=== PATIENT | male | born 1970 | race Caucasian/White ===

== ENCOUNTER 2018-10-26 02:34 | Observation (INO) | payer OTHER, MEDICARE ==
[~2018-10-26] VITALS: Ht 182.9 cm; Wt 102.9 kg
[~2018-10-26 02:34] MED LIST: ALBU90OI INH; AZIT500 PO; BUPR150ER PO; Bactrim Ds Tab1 EACH PO; CEPH500 PO; CIPR500 PO; CLOM50A PO; CYCL10 PO; DIAZ5 PO; DOXY100 PO; FLUO20 PO; GABA100; GABA300 PO; HYDACE10B PO; HYDACE5 PO; HYDCHL12.5 PO; HYDCHL25; IBUHYD PO; LEVO750 PO; LISHYD1012 PO; LISHYD2025 PO; METF500; METF500C; METF500C PO; METO50 PO; METPRE4DP PO; METR500 PO; Naproxen250 MG PO; Norco 5-325 Ta1 EACH PO; PRED20 PO; PROACE100 PO; Prinivil10 MG PO; QUET100; QUET25 PO; QUET300; RXHYDACE PO; Risperdal50 MG/2 ML IM; SACC250C PO; SULTRIDS PO; TRIHYD253B
[2018-10-26 03:15] LABS: BASOPHILS ABSOLUTE AUTO 0.07 K/mm3 (0.00-0.23); BASOPHILS PERCENT AUTO 1 % (0-2); EOSINOPHILS ABSOLUTE AUTO 0.31 K/mm3 (0.00-0.68); EOSINOPHILS PERCENT AUTO 3 % (0-6); Hematocrit 49.3 % (37.0-53.0); Hemoglobin 16.6 g/dL (13.5-17.5); IMMATURE GRAN ABSOLUTE AUTO 0.03 K/mm3 (0.00-0.10); IMMATURE GRAN PERCENT AUTO 0 % (0-1); LYMPHOCYTES ABSOLUTE AUTO 1.32 K/mm3 (0.84-5.20); LYMPHOCYTES PERCENT AUTO 13 % (21-46); MONOCYTES ABSOLUTE AUTO 0.71 K/mm3 (0.16-1.47); MONOCYTES PERCENT AUTO 7 % (4-13); Mean Corpuscular HGB 32.7 pg (26.0-34.0); Mean Corpuscular HGB Conc 33.7 g/dL (31.5-36.5); Mean Corpuscular Volume 97 fL (80-100); Mean Platelet Volume 10.2 fL (9.1-12.4); NEUTROPHILS ABSOLUTE AUTO 7.77 K/mm3 (1.96-9.15); NEUTROPHILS PERCENT AUTO 76 % (41-73); Platelet Count 145 K/mm3 (150-400); RDW Coefficient Variation 12.2 % (11.7-14.2); RDW Standard Deviation 43.7 fL (35.1-46.3); Red Blood Cell Count 5.07 M/mm3 (4.30-5.90); White Blood Cell Count 10.21 K/mm3 (4.00-11.30)
[2018-10-26 03:29] LABS: Alanine Aminotransfer (ALT/SGP 24 U/L (12-78); Albumin, Blood 3.3 g/dL (3.4-5.0); Albumin/Globulin Ratio 1.1 (0.8-1.8); Alk Phos 118 U/L (50-136); Anion Gap 8 mmol/L (6-16); Aspartate Aminotrans (AST/SGOT 19 U/L (12-37); Bilirubin, Total 0.3 mg/dL (0.1-1.0); Blood Urea Nitrogen 17 mg/dL (8-24); CO2, Blood 27 mmol/L (21-32); Calcium, Blood 8.2 mg/dL (8.5-10.1); Chloride, Blood 106 mmol/L (98-108); Glomerular Filtration Rate >60 (60-); Glucose, Blood 181 mg/dL (70-99); Potassium, Blood 3.5 mmol/L (3.5-5.5); Sodium, Blood 141 mmol/L (136-145); Total Protein, Blood 6.3 g/dL (6.4-8.2)
--- NOTE | 2018-10-26 09:56 | NUR ---
REPORT RECEIVED FROM ED RN AT THIS TIME.
--- NOTE | 2018-10-26 11:03 | NUR ---
The pt was admitted to ICU 15; PCU status. He is very somnulent. Admission nursing history was not completed due to the pt's inability to stay awake and answer questions, as well as some confusing answers given in response to questions (i.e. "I take MRSA for diabetes"). He appears unkempt, unclean, and has many small scabs with reddness around them on his arms, abdomen and pelvic area. Blood pressure noted elevated and apresoline was administered as ordered prn. Continuing to monitor the response to this. Normal sinus rhythm noted 89 bpm, sp02 97% on room air, tachypneic at 20-28 breaths /minute. positive JVD. He stated on admission that his pain was sternal, sharp, rated a 9/10. He has not been able to stay awake long enough to complete any conversations with me.
[2018-10-26 12:11] LABS: Magnesium, Blood 2.3 mg/dL (1.6-2.4); Troponin I 0.015 ng/mL (0.000-0.040)
--- NOTE | 2018-10-26 12:47 | NUR ---
The pt remains somnulent, awakening to verbal stimuli, but falls quickly back to sleep. No c/o pain or discomfort at this time. Blood pressure remains high; call to Dr. lovett regarding this and new orders received.
[2018-10-26 12:58] LABS: Bilirubin, Urine Neg (Neg); Blood, Urine 2+ (Neg); Glucose Qualitative, Urine Neg (Neg); Ketones, Urine Neg (Neg); Leukocyte Esterase, Urine Neg (Neg); Nitrite, Urine Neg (Neg); Protein, Urine Neg (Neg); Urobilinogen, Urine NORM (Normal)
--- NOTE | 2018-10-26 13:22 | NUR ---
ECHOCARDIOGRAM COMPLETED
[2018-10-26 13:55] LABS: Appearance, Urine Clear (Clear); Color, Urine Yellow (P-Yellow)
[2018-10-26 13:56] LABS: Bacteria Few /hpf; Red Blood Cells, Urine 0-2 /hpf (0-2); Squamous Epithelial Cells Not Seen /hpf (Few); White Blood Cells, Urine 0-2 /hpf (0-5)
--- NOTE | 2018-10-26 14:27 | NUR ---
Metoprolol oral med given for blood pressure as ordered by Dr. Rosales. The pt awakens to simuli, but falls quickly back to sleep. He stated that his pain is just a "little bit" now in his sternal area. NO dyspnea, cyanosis, diaphoresis, or hypoxia. Continous oxymetry in place, regular hourly blood pressure checks to monitor response to administered antihypertensives. Normal sinus rhythm per monitor, troponins have been negative so far.
[2018-10-26 14:43] LABS: U Amphetamine Screen DETECTED; U Barbituate Screen Not Detected; U Benzodiazapine Screen Not Detected; U Buprenorphine Screen Not Detected; U Cannabinoids Screen DETECTED; U Cocaine Screen Not Detected; U Methadone Screen Not Detected; U Methamphetamine Screen Not Detected; U Opiates Screen Not Detected; U Oxycodone Screen Not Detected; U Phencyclidine Screen Not Detected; U Propoxyphene Screen Not Detected
[2018-10-26] MEDS ORDERED: METF500C PO (17:29)
[2018-10-26] MEDS ORDERED: LISI5 PO (17:29)
[2018-10-26] MEDS ORDERED: ACET325 PO (17:30)
--- NOTE | 2018-10-26 17:31 | NUR ---
The patient is more awake now, answering questions and responding appropriately. Dr. Rosales was here to see the patient; states that the troponins have all been negative. The pt is no longer having any chest pain. He has been sleeping since his arrival here in the unit, except for being awakened briefly by staff for care and assessments. He states that he lives at [address] [place] [address] in [facility], but does not have anyone who could come and pick him up. States that he does not have any phone numbers for family or friends who can give him a ride home. States that he isn't going to get his prescriptions filled, either, because he hasn't been taking his medications at home and he doesn't have any money to pay for prescriptions. States that he uses the [place] [facility], and that I could send the prescriptions there since they cost is much less than a regular pharmacy. I called and talked to the AOD at the [facility], and the prescriptions and pt information were faxed over to them. AOD states that the pt is a "regular" at their facility. Talked with Jamaal Humphries, nursing supervisor tellers and approval was recieved for a taxi ride for the pt to go to the address he gave me which he states is where he is staying with friends.
== END 2018-10-26 18:20 | disposition home or self-care (01) ==
LOC: ER 02:34 → ICUW 02:35 → PCU 02:36 → ICUW 10:05
PROVIDERS: Emergency Medicine; ADMIT Internal Medicine
DX: I24.9 Acute ischemic heart disease, unspecified (principal); I47.2 Ventricular tachycardia; I16.0 Hypertensive urgency; G93.40 Encephalopathy, unspecified; E87.6 Hypokalemia; F15.10 Other stimulant abuse, uncomplicated; E11.9 Type 2 diabetes mellitus without complications; I10 Essential (primary) hypertension; F32.9 Major depressive disorder, single episode, unspecified; F17.200 Nicotine dependence, unspecified, uncomplicated; Z88.8 Allergy status to other drugs, medicaments and biological substances; Z88.5 Allergy status to narcotic agent
CPT/HCPCS: 36415; 71045; 80053; 81001; 83036; 83690; 83735; 84484; 85025; 93005; 93010; 93306; 96365-59; 96366; 96372-59; 96375-59; 99285-25; C9113; G0378; J0360; J1650; J2060; J2405; J3010; J3480

== ENCOUNTER 2019-06-05 08:52 | Emergency (ER) | payer OTHER, MEDICARE ==
[~2019-06-05] VITALS: Ht 182.9 cm; Wt 104.3 kg
[~2019-06-05 08:52] MED LIST changes: +ACET325 PO; +LISI5 PO
[2019-06-05 09:54] LABS: BASOPHILS ABSOLUTE AUTO 0.03 K/mm3 (0.00-0.23); BASOPHILS PERCENT AUTO 0 % (0-2); EOSINOPHILS ABSOLUTE AUTO 0.04 K/mm3 (0.00-0.68); EOSINOPHILS PERCENT AUTO 0 % (0-6); Hematocrit 51.9 % (37.0-53.0); Hemoglobin 18.3 g/dL (13.5-17.5); IMMATURE GRAN ABSOLUTE AUTO 0.04 K/mm3 (0.00-0.10); IMMATURE GRAN PERCENT AUTO 0 % (0-1); LYMPHOCYTES ABSOLUTE AUTO 1.12 K/mm3 (0.84-5.20); LYMPHOCYTES PERCENT AUTO 9 % (21-46); MONOCYTES ABSOLUTE AUTO 1.13 K/mm3 (0.16-1.47); MONOCYTES PERCENT AUTO 9 % (4-13); Mean Corpuscular HGB 32.1 pg (26.0-34.0); Mean Corpuscular HGB Conc 35.3 g/dL (31.5-36.5); Mean Corpuscular Volume 91 fL (80-100); Mean Platelet Volume 10.3 fL (9.1-12.4); NEUTROPHILS ABSOLUTE AUTO 9.97 K/mm3 (1.96-9.15); NEUTROPHILS PERCENT AUTO 81 % (41-73); Platelet Count 160 K/mm3 (150-400); RDW Coefficient Variation 11.7 % (11.7-14.2); RDW Standard Deviation 39.3 fL (35.1-46.3); White Blood Cell Count 12.33 K/mm3 (4.00-11.30)
[2019-06-05 10:19] LABS: Ethanol (Alcohol), Blood, Med <3 mg/dL; Salicylate 2.5 mg/dL (2.8-20.0)
[2019-06-05 10:29] LABS: Alanine Aminotransfer (ALT/SGP 59 U/L (12-78); Albumin, Blood 4.2 g/dL (3.4-5.0); Albumin/Globulin Ratio 1.3 (0.8-1.8); Alk Phos 160 U/L (50-136); Anion Gap 7 mmol/L (6-16); Aspartate Aminotrans (AST/SGOT 24 U/L (12-37); Bilirubin, Total 0.4 mg/dL (0.1-1.0); Blood Urea Nitrogen 15 mg/dL (8-24); Bun/Creatinine Ratio 14.6 (12.0-20.0); CO2, Blood 28 mmol/L (21-32); Calcium, Blood 9.1 mg/dL (8.5-10.1); Chloride, Blood 103 mmol/L (98-108); Creatinine, Blood 1.03 mg/dL (0.60-1.20); Globulin, Blood 3.3 g/dL (2.2-4.0); Glomerular Filtration Rate >60 (60-); Glucose, Blood 134 mg/dL (70-99); Potassium, Blood 3.2 mmol/L (3.5-5.5); Sodium, Blood 138 mmol/L (136-145); Total Protein, Blood 7.5 g/dL (6.4-8.2)
[2019-06-05 10:35] LABS: Acetaminophen, Random <2.0 ug/mL (10.0-30.0)
== END 2019-06-05 12:38 | disposition left against medical advice (07) ==
LOC: ER 08:52
PROVIDERS: Physician Assistant
DX: F23 Brief psychotic disorder (principal); E11.9 Type 2 diabetes mellitus without complications; I10 Essential (primary) hypertension; D72.829 Elevated white blood cell count, unspecified; E87.6 Hypokalemia; F17.200 Nicotine dependence, unspecified, uncomplicated; Z88.8 Allergy status to other drugs, medicaments and biological substances; Z88.5 Allergy status to narcotic agent; Z79.899 Other long term (current) drug therapy; Z79.84 Long term (current) use of oral hypoglycemic drugs
CPT/HCPCS: 36415; 70450; 80053; 84443; 85025; 99285-25; G0480

== ENCOUNTER 2019-10-09 18:29 | Emergency (ER) | payer OTHER, MEDICARE ==
[~2019-10-09] VITALS: Ht 182.9 cm; Wt 72.6 kg
[2019-10-09 19:09] LABS: BASOPHILS ABSOLUTE AUTO 0.05 K/mm3 (0.00-0.23); BASOPHILS PERCENT AUTO 1 % (0-2); EOSINOPHILS PERCENT AUTO 3 % (0-6); Hematocrit 48.6 % (37.0-53.0); Hemoglobin 16.6 g/dL (13.5-17.5); IMMATURE GRAN ABSOLUTE AUTO 0.02 K/mm3 (0.00-0.10); IMMATURE GRAN PERCENT AUTO 0 % (0-1); LYMPHOCYTES ABSOLUTE AUTO 1.66 K/mm3 (0.84-5.20); LYMPHOCYTES PERCENT AUTO 17 % (21-46); MONOCYTES PERCENT AUTO 10 % (4-13); Mean Corpuscular HGB 32.6 pg (26.0-34.0); Mean Corpuscular HGB Conc 34.2 g/dL (31.5-36.5); Mean Corpuscular Volume 96 fL (80-100); Mean Platelet Volume 10.6 fL (9.1-12.4); NEUTROPHILS ABSOLUTE AUTO 6.76 K/mm3 (1.96-9.15); NEUTROPHILS PERCENT AUTO 69 % (41-73); Platelet Count 166 K/mm3 (150-400); RDW Coefficient Variation 12.2 % (11.7-14.2); RDW Standard Deviation 43.1 fL (35.1-46.3); Red Blood Cell Count 5.09 M/mm3 (4.30-5.90); White Blood Cell Count 9.79 K/mm3 (4.00-11.30)
[2019-10-09 19:23] LABS: Alanine Aminotransfer (ALT/SGP 23 U/L (12-78); Albumin, Blood 3.5 g/dL (3.4-5.0); Albumin/Globulin Ratio 1.2 (0.8-1.8); Alk Phos 98 U/L (50-136); Anion Gap 4 mmol/L (6-16); Aspartate Aminotrans (AST/SGOT 22 U/L (12-37); Bilirubin, Total 0.6 mg/dL (0.1-1.0); Blood Urea Nitrogen 17 mg/dL (8-24); Bun/Creatinine Ratio 16.5 (12.0-20.0); CO2, Blood 28 mmol/L (21-32); Calcium, Blood 8.7 mg/dL (8.5-10.1); Chloride, Blood 108 mmol/L (98-108); Creatinine, Blood 1.03 mg/dL (0.60-1.20); Globulin, Blood 2.9 g/dL (2.2-4.0); Glomerular Filtration Rate >60 (60-); Glucose, Blood 99 mg/dL (70-99); Potassium, Blood 3.5 mmol/L (3.5-5.5); Sodium, Blood 140 mmol/L (136-145); Total Protein, Blood 6.4 g/dL (6.4-8.2)
== END 2019-10-10 01:57 | disposition home or self-care (01) ==
LOC: ER 18:29
PROVIDERS: Physician Assistant
DX: K42.9 Umbilical hernia without obstruction or gangrene (principal); I10 Essential (primary) hypertension; E11.9 Type 2 diabetes mellitus without complications; F32.9 Major depressive disorder, single episode, unspecified; F20.9 Schizophrenia, unspecified; F17.200 Nicotine dependence, unspecified, uncomplicated; Z88.8 Allergy status to other drugs, medicaments and biological substances; Z88.5 Allergy status to narcotic agent; Z79.899 Other long term (current) drug therapy; Z79.84 Long term (current) use of oral hypoglycemic drugs; Z79.51 Long term (current) use of inhaled steroids
CPT/HCPCS: 36415; 74177; 76705; 80053; 83690; 85025; 99284-25; Q9967

== ENCOUNTER 2021-01-31 20:01 | Inpatient (IN) | payer OTHER, MEDICARE ==
[~2021-01-31] VITALS: Ht 182.9 cm; Wt 117.7 kg
[2021-01-31 21:50] LABS: BASOPHILS ABSOLUTE AUTO 0.06 K/mm3 (0.00-0.23); BASOPHILS PERCENT AUTO 1 % (0-2); EOSINOPHILS ABSOLUTE AUTO 0.21 K/mm3 (0.00-0.68); EOSINOPHILS PERCENT AUTO 2 % (0-6); Hematocrit 49.6 % (37.0-53.0); Hemoglobin 15.8 g/dL (13.5-17.5); IMMATURE GRAN ABSOLUTE AUTO 0.05 K/mm3 (0.00-0.10); IMMATURE GRAN PERCENT AUTO 0 % (0-1); LYMPHOCYTES ABSOLUTE AUTO 1.13 K/mm3 (0.84-5.20); LYMPHOCYTES PERCENT AUTO 9 % (21-46); MONOCYTES ABSOLUTE AUTO 1.11 K/mm3 (0.16-1.47); MONOCYTES PERCENT AUTO 9 % (4-13); Mean Corpuscular HGB Conc 31.9 g/dL (31.5-36.5); Mean Corpuscular Volume 97 fL (80-100); Mean Platelet Volume 10.2 fL (9.1-12.4); NEUTROPHILS ABSOLUTE AUTO 9.71 K/mm3 (1.96-9.15); NEUTROPHILS PERCENT AUTO 79 % (41-73); Platelet Count 201 K/mm3 (150-400); RDW Coefficient Variation 14.4 % (11.7-14.2); RDW Standard Deviation 51.6 fL (35.1-46.3); Red Blood Cell Count 5.09 M/mm3 (4.30-5.90); White Blood Cell Count 12.27 K/mm3 (4.00-11.30)
[2021-01-31 22:08] LABS: Albumin, Blood 3.1 g/dL (3.4-5.0); Albumin/Globulin Ratio 0.8 (0.8-1.8); Bilirubin, Total 1.1 mg/dL (0.1-1.0); Bun/Creatinine Ratio 19.7 (12.0-20.0); Calcium, Blood 8.4 mg/dL (8.5-10.1); Creatinine, Blood 1.47 mg/dL (0.60-1.20); Globulin, Blood 3.7 g/dL (2.2-4.0); Potassium, Blood 3.7 mmol/L (3.5-5.5); Total Protein, Blood 6.8 g/dL (6.4-8.2); Troponin I 0.132 ng/mL (0.000-0.040)
[2021-02-01 02:41] LABS: Source, Urine Clean Catch
[2021-02-01 02:44] LABS: Appearance, Urine Clear (Clear); Bilirubin, Urine Neg (Neg); Blood, Urine 4+ (Neg); Color, Urine Yellow (P-Yellow); Glucose Qualitative, Urine Neg (Neg); Ketones, Urine Neg (Neg); Leukocyte Esterase, Urine Neg (Neg); Nitrite, Urine Neg (Neg); Protein, Urine 4+ (Neg); Urobilinogen, Urine 2+ (Normal)
[2021-02-01 02:50] LABS: Bacteria Mod /hpf; Hyaline Casts 0-2 /lpf (0-2); Spermatozoa Few /hpf; Squamous Epithelial Cells Not Seen /hpf (Few)
[2021-02-01 03:24] LABS: U Amphetamine Screen DETECTED; U Barbituate Screen Not Detected; U Benzodiazapine Screen Not Detected; U Buprenorphine Screen Not Detected; U Cannabinoids Screen DETECTED; U Cocaine Screen Not Detected; U Methadone Screen Not Detected; U Methamphetamine Screen DETECTED; U Opiates Screen Not Detected; U Phencyclidine Screen Not Detected
[2021-02-01 03:25] LABS: U Oxycodone Screen Not Detected; U Propoxyphene Screen Not Detected
[2021-02-01 03:46] LABS: Bun/Creatinine Ratio 18.7 (12.0-20.0); Calcium, Blood 8.2 mg/dL (8.5-10.1); Creatinine, Blood 1.39 mg/dL (0.60-1.20); Potassium, Blood 3.3 mmol/L (3.5-5.5)
--- NOTE | 2021-02-01 05:41 | NUR ---
SHIFT SUMMARY PATIENT ARRIVED TO ICU RM 3 @ 00:45. WHILE PERFORMING NEURO ASSESSMENT, PT IS ROUSABLE, HOWEVER DIFFICULT TO MAINTAIN CONCENTRATION, AND WHEN ANSWERING QUESTIONS NOT ALWAYS SENSIBLE. WHEN ASKED WHO HE LIVES WITH HE ANSWERED "[facility] [place]," WHEN ASKED IF THAT WAS A PERSON'S NICKNAME PT FELL BACK DEEPLY ASLEEP. WHEN ASKED AGAIN, PT RESPONDED "YES," WHEN ASKED WHO PT COULD NOT THINK OF NAME, UNCERTAIN IF RELATIVE. WHEN ASKED IF HE LIVES IN A HOUSE, APARTMENT, PT STATED "I LIVE WHEREVER I WANT TO." WHEN ASKED IF HOMELESS, PT DENIED. EVENTUALLY SWITCHED FROM NITRO TO NICARDIPINE DRIP, BP IMPROVING, CURRENTLY @ 7.5 MG/HR. ASSESSMENT IS CHARTED. VSS. WILL CONTINUE TO MONITOR.
--- NOTE | 2021-02-01 09:39 | NUR ---
ECHOCARDIOGRAM COMPLETE
--- NOTE | 2021-02-01 10:00 | NUR ---
Care Assumed 0700 Nicardipine 5 mg/hr for SBP > 180, NSR. Pt responds to verbal stimuli, aware of location, event, and states correct date/year. Slow to respond and falls back asleep quickly (snoring). On 2 L via NC, SPO2 > 90%. Pt states wearing CPAP machine at home in the past but currently does not wear it. Denies taking any medications currently. States having scrotal pain (8/10) sharp and constant that started two days ago. Condom cath in place with yellow/clear urine in bag. VSS. Call ligt within reach.
--- NOTE | 2021-02-01 10:30 | NUR ---
Provider Visit Dr. Crain in to see patient. Provider to place new orders for oral BP medication to titrate off Nicardipine. Pt able to sit-up in bed and eat. Easily falls asleep and slurred words at time. Pt states being thirsty and hungry. Pt states having leg cramps, provider made pt aware that this is due to electrolyte shifts. VSS.
--- NOTE | 2021-02-01 11:05 | NUR ---
6 BEAT RUN OF VT Nonsustained VT, pt asymptomatic, sitting in bed drinking water. See chart for strip.
[2021-02-01 12:17] LABS: Troponin I 0.091 ng/mL (0.000-0.040)
[2021-02-01 12:18] LABS: Potassium, Blood 3.3 mmol/L (3.5-5.5)
--- NOTE | 2021-02-01 14:21 | NUR ---
Update- Provider call Dr. Crain called in regards to pts K (3.3), new orders recieved see emar. Pt sleeping or asking for fruits. Pt given healthy snacks like apple and blueberries.
--- NOTE | 2021-02-01 16:41 | NUR ---
TRANSFER/PROVIDER CALL Pt changed to Med floor with Telemetry per Dr. Crain. Pt BP stable.
--- NOTE | 2021-02-01 17:31 | NUR ---
Transfer to MED 313, Med with Telemtry Report given to Emma Kellogg. Pt remains A/O X 4. Having flight of thoughts occasionally and seeing talking to self. When asked pt states, "I'm just talking to myself." Calm/Cooperative other times. SBP < 180, Nicardipine has been DC'd. NSR. On RA when awake, SPO2 >90% BT active X 4. Condom cath remains in place, large amounts of urine output, see I/O. States testicular pain of 4/10 which is tolerable per pt. Pt states he would like to smoke, made aware of no smoking in hospital. Dr. Crain called to ask for Nicotine patch, provider did not answer. Asked Bess Carter to ask provider for Nicotine patch for patient.
--- NOTE | 2021-02-01 17:48 | NUR ---
Pt to medical floor All of patient belongs sent with patient. VSS. On RA.
--- NOTE | 2021-02-01 18:27 | NUR ---
SHIFT SUMMARY PT TRANSFERRED FROM ICU AT APPROXIMATELY 1820. PT IS AO TO SELF AND SURROUNDINGS. PT PROVIDED WATER. PT IS CURRENTLY ON BEDREST. PT DID NOT HAVE VISITORS ON MEDICAL UNIT. PT IS IN BED, CALL LIGHT IN REACH, BED IN LOW POSITION, ALARM ON.
--- NOTE | 2021-02-02 02:34 | NUR ---
LATE ENTRY FOR 02/01 AT 2230. CALL TO HOSPITALIST / HTN CONTINUES W/ SBP >180 DESPITE HYDRALAZINE. NEW ORDERS FOR OT LISINOPRIL AND IV LOPRESSOR. DAILY LISINOPRIL INCREASED. PT DENIES ABAD, DENIES CP. LETHARGIC, BUT WAKES UP EASILY W/ VERBAL OR TACTILE STIMULI.
[2021-02-02 04:34] LABS: Hematocrit 48.7 % (37.0-53.0); Hemoglobin 15.9 g/dL (13.5-17.5); Mean Corpuscular HGB 30.9 pg (26.0-34.0); Mean Corpuscular HGB Conc 32.6 g/dL (31.5-36.5); Mean Corpuscular Volume 95 fL (80-100); Mean Platelet Volume 10.4 fL (9.1-12.4); Platelet Count 172 K/mm3 (150-400); RDW Coefficient Variation 14.2 % (11.7-14.2); RDW Standard Deviation 48.9 fL (35.1-46.3); Red Blood Cell Count 5.14 M/mm3 (4.30-5.90); White Blood Cell Count 13.13 K/mm3 (4.00-11.30)
[2021-02-02 04:51] LABS: Anion Gap 7 mmol/L (6-16); Blood Urea Nitrogen 22 mg/dL (8-24); Bun/Creatinine Ratio 17.1 (12.0-20.0); CO2, Blood 28 mmol/L (21-32); Calcium, Blood 8.1 mg/dL (8.5-10.1); Chloride, Blood 100 mmol/L (98-108); Creatinine, Blood 1.29 mg/dL (0.60-1.20); Glomerular Filtration Rate >60 (60-); Glucose, Blood 206 mg/dL (70-99); Magnesium, Blood 2.1 mg/dL (1.6-2.4); Potassium, Blood 3.6 mmol/L (3.5-5.5); Sodium, Blood 135 mmol/L (136-145)
--- NOTE | 2021-02-02 05:20 | NUR ---
SHIFT SUMMARY: HYPERTENSIVE W/ SBP 153-200 TONIGHT. NSR 98 PER ALLERGIST/MD. DENIES ABAD, DENIES CP. EXERTIONAL DYSPNEA, 02 99% ON RA. COARSE RHONCHI AUSCULTATED THROUGHOUT LOBES, SLIGHTLY IMPROVED WHEN COUGH ENCOURAGED. PT REQUESTING FOOD AND FLUIDS CONSTANTLY WHILE AWAKE, CBG CHECKED- 154, CHEM BG 206 THIS AM. CONT W/ BLE AND SCROTAL SWELLING. SMALL AMT OF WHEEPING NOTED FROM SCROTUM. CONDOM CATH IN PLACE. PT REMAINED IN BED ALL NIGHT. REPORTING LEG PAIN THIS AM, WILL ADMINISTER ANALGESIC PER ORDERS. LETHARGIC BUT RESPONDS READILY TO VERBAL OR PHYSICAL STIMULI, QUICKLY FALLS BACK ASLEEP AND IMMEDIATELY STARTS SNORING. FLIGHT OF IDEAS WHILE TALKING. A/O TO SELF AND LOCATION. WCTM.
--- NOTE | 2021-02-02 18:28 | NUR ---
SHIFT SUMMARY NO ACUTE CHANGES, A&O TO SELF AND PLACE, FREQUENT FLIGHT OF IDEAS AND DIFFICULT FOR STAFF TO UNDERSTAND AT TIMES. IMPULSIVE AND DOES NOT CALL APPROPRIATELY, BED ALARM ON. GETS UP TO SIDE OF BED TO USE URINAL WITHOUT SBA. PT/OT ORDERED THIS SHIFT, WORKING WITH PT. CONDOM CATHETER REMOVED. BP REMAINS ELEVATED, PROVIDER AWARE. SCHEDULED AND PRN MEDS PROVIDED. VISUAL HALLUCINATIONS AND ANXIETY NOTED, PRN ATIVAN PROVIDED. LETHARGIC T/O SHIFT, NODDING IN AND OUT OF SLEEP. PT IS CURRENTLY SLEEPING WITH CALL LIGHT WITHIN REACH AND BED ALARM.
--- NOTE | 2021-02-03 04:04 | NUR ---
SHIFT SUMMARY ADMITTED FOR HYPERTENSIVE URGENCY/SEVERE SWELLING OF THE LOWER EXTREMITIES. FULL CODE. HE LIVES AT HOME ALONE. POSSIBLE DC WITH HOME HEALTH. PT CONTINUES TO HAVE HIGH BLOOD PRESSURE IN THE 170S SYSTOLIC AND OVER 100 DIASTOLIC. PT MEDICATED WITH PRN APRESOLINE WITHOUT IMPROVEMENT. PT RESTING AT THIS TIME.
--- NOTE | 2021-02-03 04:17 | NUR ---
CTA/NATURAL GAS INSPECTOR I HAVE ASSESSED THIS PT. I HAVE READ THE NATURAL GAS INSPECTOR'S DOCUMENTATION AND I AGREE. SHIFT SUMMARY IN NATURAL GAS INSPECTOR NOTES.
[2021-02-03 05:01] LABS: Hematocrit 54.7 % (37.0-53.0); Mean Corpuscular HGB 31.3 pg (26.0-34.0); Mean Corpuscular HGB Conc 32.9 g/dL (31.5-36.5); Mean Corpuscular Volume 95 fL (80-100); Platelet Count 154 K/mm3 (150-400); RDW Coefficient Variation 14.9 % (11.7-14.2); RDW Standard Deviation 51.1 fL (35.1-46.3); Red Blood Cell Count 5.75 M/mm3 (4.30-5.90); White Blood Cell Count 13.77 K/mm3 (4.00-11.30)
[2021-02-03 05:16] LABS: Anion Gap 6 mmol/L (6-16); Blood Urea Nitrogen 21 mg/dL (8-24); Bun/Creatinine Ratio 18.3 (12.0-20.0); CO2, Blood 25 mmol/L (21-32); Calcium, Blood 8.9 mg/dL (8.5-10.1); Chloride, Blood 104 mmol/L (98-108); Creatinine, Blood 1.15 mg/dL (0.60-1.20); Glomerular Filtration Rate >60 (60-); Glucose, Blood 136 mg/dL (70-99); Potassium, Blood 3.8 mmol/L (3.5-5.5); Sodium, Blood 135 mmol/L (136-145)
--- NOTE | 2021-02-04 05:14 | NUR ---
SHIFT SUMMARY ADMITTED FOR HYPERTENSIVE EMERGENCY/LE SWELLING. FULL CODE. PLAN FOR PT/OT EVALUATION FOR PT DC TO HOME WITH HOME HEALTH. PT HAD INCREASING HALLUCINATIONS THROUGHOUT THE SHIFT. PT BECAME VERY ANXIOUS AND AGITATED, OPENING OLD SORES ON HIS FACE - MEDICATED WITH PRN ATIVAN WITH IMPROVEMENT. PT CONTINUES TO REQUEST LARGE AMOUNTS OF FLUID. NO OTHER CONCERNS AT THIS TIME.
--- NOTE | 2021-02-04 05:43 | NUR ---
CTA/DOOR OPENER I HAVE ASSESSED THIS PT. I HAVE READ THIS DOOR OPENER'S DOCUMENTATION AND I AGREE. SHIFT SUMMARY IS IN DOOR OPENER NOTES.
[2021-02-05 04:54] LABS: Hematocrit 52.7 % (37.0-53.0); Hemoglobin 17.3 g/dL (13.5-17.5); Mean Corpuscular HGB 31.2 pg (26.0-34.0); Mean Corpuscular HGB Conc 32.8 g/dL (31.5-36.5); Mean Corpuscular Volume 95 fL (80-100); Mean Platelet Volume 9.3 fL (9.1-12.4); Platelet Count 161 K/mm3 (150-400); RDW Coefficient Variation 14.6 % (11.7-14.2); Red Blood Cell Count 5.55 M/mm3 (4.30-5.90)
[2021-02-05 05:28] LABS: Anion Gap 5 mmol/L (6-16); Blood Urea Nitrogen 21 mg/dL (8-24); Bun/Creatinine Ratio 18.8 (12.0-20.0); CO2, Blood 24 mmol/L (21-32); Calcium, Blood 8.7 mg/dL (8.5-10.1); Chloride, Blood 106 mmol/L (98-108); Creatinine, Blood 1.12 mg/dL (0.60-1.20); Glomerular Filtration Rate >60 (60-); Glucose, Blood 109 mg/dL (70-99); Sodium, Blood 135 mmol/L (136-145)
--- NOTE | 2021-02-05 06:27 | NUR ---
PRESCHOOL PROGRAM DIRECTOR SUMMARY NO ACUTE CHANGES THIS SHIFT. PT AAOX3 WITH SOME INTERMITTENT FORGETFULNESS. HAVE BEEN PLEASANT AND COOPERATIVE THROUGH THE NIGHT. ENCOURAGED PT NOT TO OVER DO IT ON FLUIDS PT IS CONSTANTLY ASKING FOR MORE TO DRINK AND SNACKS. DIURESING WELL. BP ELEVATED WITH AM LABS 170'S OVER 110'S, GIVEN PRN IV HYDRALAZINE. WILL CONTINUE TO MONITOR.
--- NOTE | 2021-02-05 13:00 | NUR ---
PT WOKE ONLY LONG ENOUGH TO TAKE MEDS THIS MORNING AND ANSWER BASIC QUESTIONS. HAD REPORTED TO INSTRUMENT CALIBRATOR PRIOR HE THOUGHT HE HAD BEEN LEFT HERE TO . WHEN ASKED ABOUT THIS CONCERN PT REPORTED HE HAD BEEN TOLD PRIOR TO GRANDFATHERS HIS GRANDFATHER TOLD HIM PEOPLE ONLY WENT TO THE HOSPITAL TO . WHEN P.T. WENT TO SEE PT HE WOKE UP AND WAS LOUDLY TELLING HER THAT PEOPLE WERE CONSTANTLY TELLING HIM HE WAS GOING TO . A SHORT TIME LATER PT HAD BECOME QUITE ANTSY ABOUT STAYING IN HOSPITAL AND WANTING TO GO OUTSIDE TO WALK AROUND AND SMOKE. PT REMOVED NICOTINE PATCH AND PACED THE ROOM. ATIVAN GIVEN AT THAT TIME WELL TYLENOL FOR HEADACHE. CHATTED WITH PT FOR SHORT TIME ABOUT STAYING IN HOSPITAL AND CONCERNS ABOUT FOLLOW UP FOR HIS MENTAL STATE. PT SAID HE WOULD TAKE CARE OF IT. SKIPPED FROM SUBJECT TO SUBJECT RAPIDLY AND COULD BE HARD TO FOLLOW WITH HIS CHATTER. DID KEEP SAYING HE DIDN'T WANT TO IN THE HOSPITAL AND JUST WANTED TO LEAVE. SPOKE WITH MD ON PHONE ABOUT PTS MENTAL STATE AND WANTING TO LEAVE. PT SAID APPROX 1230 HE HAD TO LEAVE AND LEAVE NOW. IV REMOVED, AMA FORM FILLED OUT AND PT DRESSED HIMSELF AND WALKED OUT OF FACILITY. MD AWARE OF PT LEAVING AMA.
[2021-03-28] MEDS ORDERED: LISI20 PO (15:54)
[2021-03-28] MEDS ORDERED: METO25ER PO (15:54)
[2021-03-28] MEDS ORDERED: FURO20 PO (15:55)
== END 2021-02-05 12:41 | disposition left against medical advice (07) | DRG 917 ==
LOC: ER 20:01 → ICUW 23:35 → ICUE 23:35 → MEDS 02-01 00:35 → ICUE 02-01 01:04 → MEDS 02-01 17:55
PROVIDERS: Internal Medicine; Physician Assistant; ADMIT Internal Medicine
DX: T43.621A Poisoning by amphetamines, accidental (unintentional), initial encounter (principal); G92 Toxic encephalopathy; I16.1 Hypertensive emergency; I42.7 Cardiomyopathy due to drug and external agent; R65.10 Systemic inflammatory response syndrome (SIRS) of non-infectious origin without acute organ dysfunction; I10 Essential (primary) hypertension; F20.9 Schizophrenia, unspecified; E11.9 Type 2 diabetes mellitus without complications; I16.0 Hypertensive urgency; E87.6 Hypokalemia; F15.10 Other stimulant abuse, uncomplicated; Z53.29 Procedure and treatment not carried out because of patient's decision for other reasons; F32.9 Major depressive disorder, single episode, unspecified; F17.210 Nicotine dependence, cigarettes, uncomplicated; Z98.890 Other specified postprocedural states; Z91.14 Patient's other noncompliance with medication regimen; Z88.5 Allergy status to narcotic agent; Z88.8 Allergy status to other drugs, medicaments and biological substances; Z79.84 Long term (current) use of oral hypoglycemic drugs; Z79.899 Other long term (current) drug therapy
CPT/HCPCS: 36415; 71046; 76870; 80048; 80053; 81001; 82947; 83690; 83735; 83880; 84132; 84484; 85025; 85027; 87086; 93005; 93010; 93306; 94660; 94762; 96365; 97110; 97116; 97162; 97166; 97530; 99285-25; A9270; J0360; J1644; J1940; J3480; J7050

== ENCOUNTER 2021-03-27 10:49 | Observation (INO) | payer OTHER, MEDICARE | END 2021-03-28 17:29 | disposition home or self-care (01) | LOC: ER 10:49 → ERHOLD 10:50 → PCU 18:23 | PROVIDERS: ADMIT Hospitalist | DX: I16.0 Hypertensive urgency (principal); I16.1 Hypertensive emergency; F25.9 Schizoaffective disorder, unspecified; I11.0 Hypertensive heart disease with heart failure; I50.22 Chronic systolic (congestive) heart failure; E11.9 Type 2 diabetes mellitus without complications; I49.1 Atrial premature depolarization; R79.89 Other specified abnormal findings of blood chemistry; F15.10 Other stimulant abuse, uncomplicated; F17.210 Nicotine dependence, cigarettes, uncomplicated; R65.10 Systemic inflammatory response syndrome (SIRS) of non-infectious origin without acute organ dysfunction; Z88.5 Allergy status to narcotic agent; Z88.8 Allergy status to other drugs, medicaments and biological substances ==

== ENCOUNTER 2021-04-07 13:41 | Inpatient (IN) | payer OTHER ==
[~2021-04-07] VITALS: Ht 182.9 cm; Wt 89.6 kg
[~2021-04-07 13:41] MED LIST changes: +FURO20 PO; +LISI20 PO; +METO25ER PO
[2021-04-07 14:34] LABS: Hematocrit 52.1 % (37.0-53.0); Mean Corpuscular HGB 30.9 pg (26.0-34.0); Mean Corpuscular HGB Conc 32.6 g/dL (31.5-36.5); Mean Corpuscular Volume 95 fL (80-100); Mean Platelet Volume 10.8 fL (9.1-12.4); Platelet Count 156 K/mm3 (150-400); RDW Coefficient Variation 15.1 % (11.7-14.2); RDW Standard Deviation 53.5 fL (35.1-46.3); Red Blood Cell Count 5.51 M/mm3 (4.30-5.90); White Blood Cell Count 11.85 K/mm3 (4.00-11.30)
[2021-04-07 14:52] LABS: BASOPHILS PERCENT MAN 0 % (0-2); EOSINOPHILS PERCENT MAN 0 % (0-6); LYMPHOCYTES % ATYPICAL MANUAL 2 % (0-0); LYMPHOCYTES ABSOLUTE MAN 1.18 K/mm3 (0.84-5.20); LYMPHOCYTES PERCENT MAN 8 % (21-46); MONOCYTES ABSOLUTE MAN 0.59 K/mm3 (0.16-1.47); MONOCYTES PERCENT MAN 5 % (4-13); NEUTROPHILS ABSOLUTE MAN 10.07 K/mm3 (1.96-9.15); SEG NEUTROPHILS PERCENT MAN 85 % (41-73); TOTAL CELLS COUNTED 100
[2021-04-07 14:55] LABS: PCO2 Arterial 53.5 mmHg (35-45); PO2 Arterial 78.9 mmHg (80-100); pH Blood Arterial 7.38 (7.35-7.45)
[2021-04-07 14:55] LABS: Troponin I 0.083 ng/mL (0.000-0.040)
[2021-04-07 14:56] LABS: Albumin, Blood 2.8 g/dL (3.4-5.0); Albumin/Globulin Ratio 0.6 (0.8-1.8); Bilirubin, Total 0.5 mg/dL (0.1-1.0); Bun/Creatinine Ratio 19.8 (12.0-20.0); Calcium, Blood 8.4 mg/dL (8.5-10.1); Creatinine, Blood 1.31 mg/dL (0.60-1.20); Globulin, Blood 4.5 g/dL (2.2-4.0); Potassium, Blood 3.3 mmol/L (3.5-5.5); Total Protein, Blood 7.3 g/dL (6.4-8.2)
--- NOTE | 2021-04-07 19:44 | NUR ---
report received from CHESTER Calle in ER. Await transfer to room 356
--- NOTE | 2021-04-08 05:02 | NUR ---
patient was fitfull last night. waking with a coarse, violent nonproductive cough. patient states cough is what keeps him awake and causes the chest pain and pain to his umbilical hernia. he has taken off his nasal cannula multiple times in his sleep overnight. telemetry reveals Sinus tish 50-60. patient asking for food. unable to tell him why he is NPO. will ask for mechanical dvt prophylaxis with scd's as patient has sores on legs and does not want to try TEDS
[2021-04-08 07:00] LABS: Hematocrit 50.4 % (37.0-53.0); Hemoglobin 16.6 g/dL (13.5-17.5); Mean Corpuscular HGB 30.6 pg (26.0-34.0); Mean Corpuscular HGB Conc 32.9 g/dL (31.5-36.5); Mean Corpuscular Volume 93 fL (80-100); Mean Platelet Volume 11.1 fL (9.1-12.4); Platelet Count 141 K/mm3 (150-400); RDW Coefficient Variation 14.9 % (11.7-14.2); RDW Standard Deviation 51.3 fL (35.1-46.3); Red Blood Cell Count 5.42 M/mm3 (4.30-5.90); White Blood Cell Count 9.73 K/mm3 (4.00-11.30)
[2021-04-08 07:01] LABS: Anion Gap 5 mmol/L (6-16); Blood Urea Nitrogen 19 mg/dL (8-24); Bun/Creatinine Ratio 16.1 (12.0-20.0); CO2, Blood 30 mmol/L (21-32); Calcium, Blood 8.1 mg/dL (8.5-10.1); Chloride, Blood 102 mmol/L (98-108); Creatinine, Blood 1.18 mg/dL (0.60-1.20); Glomerular Filtration Rate >60 (60-); Glucose, Blood 109 mg/dL (70-99); Potassium, Blood 3.2 mmol/L (3.5-5.5); Sodium, Blood 137 mmol/L (136-145); Troponin I 0.084 ng/mL (0.000-0.040)
[2021-04-08 07:24] LABS: BASOPHILS PERCENT MAN 0 % (0-2); EOSINOPHILS PERCENT MAN 0 % (0-6); LYMPHOCYTES % ATYPICAL MANUAL 1 % (0-0); LYMPHOCYTES ABSOLUTE MAN 1.55 K/mm3 (0.84-5.20); LYMPHOCYTES PERCENT MAN 15 % (21-46); MONOCYTES ABSOLUTE MAN 0.77 K/mm3 (0.16-1.47); MONOCYTES PERCENT MAN 8 % (4-13); NEUTROPHILS ABSOLUTE MAN 7.39 K/mm3 (1.96-9.15); SEG NEUTROPHILS PERCENT MAN 76 % (41-73); TOTAL CELLS COUNTED 100
--- NOTE | 2021-04-08 17:07 | NUR ---
SUMMARY PT RESTING QUIETLY IN BED, WAKES EASILY, PT HAS BEEN PLEASANT AND COOPERATIVE WITH CARE T/O THE DAY, PT MED PER EMAR FOR PAIN AND ANXIETY, PT OFTEN WITH STRANGE RAMBLING SPEECH AND VISUAL HALLUCINATIONS, FRIENDS HAVE CALLED TO CHECK ON THE PT, VSS, NO COMPLAINTS, WILL CONT TO MONITOR
--- NOTE | 2021-04-09 01:46 | NUR ---
PATIENT HAD 6 BEAT OF V TACH IN 140'S AROUND 2330. MO WAS NOTIFIED AND LAB ORDERS WERE GIVEN. AWAITING RESULTS OF RENAL PANEL AND MG FROM LAB TO NOTIFY MD, NO FURTHER EVUDEBCE IF ARRHYTHMIAS SINCE INITIAL ASSESSMENT
[2021-04-09 02:05] LABS: Albumin, Blood 2.6 g/dL (3.4-5.0); Anion Gap 5 mmol/L (6-16); Blood Urea Nitrogen 25 mg/dL (8-24); Bun/Creatinine Ratio 16.8 (12.0-20.0); CO2, Blood 32 mmol/L (21-32); Calcium, Blood 8.5 mg/dL (8.5-10.1); Chloride, Blood 100 mmol/L (98-108); Creatinine, Blood 1.49 mg/dL (0.60-1.20); Glomerular Filtration Rate 50 (60-); Glucose, Blood 191 mg/dL (70-99); Magnesium, Blood 2.1 mg/dL (1.6-2.4); Phosphorus, Blood 2.2 mg/dL (2.5-4.9); Potassium, Blood 4.2 mmol/L (3.5-5.5); Sodium, Blood 137 mmol/L (136-145)
--- NOTE | 2021-04-09 04:04 | NUR ---
Patient breath sounds continue to be quite course, but improved over yesterday evening. Strong raspy cough productive of thick minaya/brown colored sputum. Patient voiding large quantitites. Patient had 6 beats of V tach at a rate of 140's. Night hospitalist was informed;;and stat Potassium and Renal panel. results are as follows: K+ 4.2, and magnesium was 2.1 , Mr. Julian has had n further episodes tonight. no complaints of chest pain or pressure overnight v
--- NOTE | 2021-04-09 14:27 | NUR ---
PATIENT LEAVE AMA: PATIENT LEFT AMA THIS SHIFT. IV ACCESS D/C'd. HOSPITALIST (DR ADAMS) AWARE.
--- NOTE | 2021-04-09 14:41 | NUR ---
Patient is very talkative. He tells me that he is leaving as soon as the IV is removed. Patient then goes on a long rant about all his beliefs about God, the devil, the table and his arm. He is energized by conversation centered around spiritual topics. I provide companionship, spiritual guidance and a calming presence until he can get his IV taken out and able to DC.
== END 2021-04-09 13:52 | disposition left against medical advice (07) | DRG 304 ==
LOC: ER 13:41 → ERHOLD 16:52 → MEDS 16:52
PROVIDERS: Family Medicine; Physician Assistant; ADMIT Hospitalist
DX: I16.0 Hypertensive urgency (principal); J69.0 Pneumonitis due to inhalation of food and vomit; N17.9 Acute kidney failure, unspecified; F17.210 Nicotine dependence, cigarettes, uncomplicated; K52.9 Noninfective gastroenteritis and colitis, unspecified; F15.10 Other stimulant abuse, uncomplicated; K42.9 Umbilical hernia without obstruction or gangrene; E87.6 Hypokalemia; I10 Essential (primary) hypertension; F25.1 Schizoaffective disorder, depressive type; Z88.5 Allergy status to narcotic agent; Z88.8 Allergy status to other drugs, medicaments and biological substances
CPT/HCPCS: 36415; 36600; 71045; 74176; 80048; 80053; 80069; 82803; 83735; 83880; 84484; 85025; 93005; 93010; 93308; 93321; 94640; 94667; 94760; 96374; 96375; 99285-25; A9270; J0360; J1940; J1956; J2060; J2543; J2930; J3010; J3480; J7050

== ENCOUNTER 2021-07-18 09:41 | Emergency (ER) | payer OTHER ==
[~2021-07-18] VITALS: Ht 182.9 cm; Wt 117.9 kg
[2021-07-18] MEDS ORDERED: NYSTRIT TOP (10:07)
== END 2021-07-18 10:23 | disposition home or self-care (01) ==
LOC: ER 09:41
DX: K42.9 Umbilical hernia without obstruction or gangrene (principal); I10 Essential (primary) hypertension; R21 Rash and other nonspecific skin eruption; F17.210 Nicotine dependence, cigarettes, uncomplicated; E11.9 Type 2 diabetes mellitus without complications; Z88.5 Allergy status to narcotic agent; Z88.8 Allergy status to other drugs, medicaments and biological substances
CPT/HCPCS: 99283; A9270

== ENCOUNTER 2021-08-10 21:50 | Inpatient (IN) | payer OTHER ==
[~2021-08-10] VITALS: Ht 182.9 cm; Wt 115.0 kg
[~2021-08-10 21:50] MED LIST changes: +NYSTRIT TOP
[2021-08-10 22:20] LABS: BASOPHILS ABSOLUTE AUTO 0.06 K/mm3 (0.00-0.23); BASOPHILS PERCENT AUTO 1 % (0-2); EOSINOPHILS ABSOLUTE AUTO 0.21 K/mm3 (0.00-0.68); EOSINOPHILS PERCENT AUTO 2 % (0-6); Hematocrit 47.8 % (37.0-53.0); IMMATURE GRAN ABSOLUTE AUTO 0.06 K/mm3 (0.00-0.10); IMMATURE GRAN PERCENT AUTO 1 % (0-1); LYMPHOCYTES ABSOLUTE AUTO 1.24 K/mm3 (0.84-5.20); LYMPHOCYTES PERCENT AUTO 10 % (21-46); MONOCYTES ABSOLUTE AUTO 1.26 K/mm3 (0.16-1.47); MONOCYTES PERCENT AUTO 10 % (4-13); Mean Corpuscular HGB 30.5 pg (26.0-34.0); Mean Corpuscular HGB Conc 31.4 g/dL (31.5-36.5); Mean Corpuscular Volume 97 fL (80-100); Mean Platelet Volume 10.7 fL (9.1-12.4); NEUTROPHILS ABSOLUTE AUTO 10.21 K/mm3 (1.96-9.15); NEUTROPHILS PERCENT AUTO 78 % (41-73); Platelet Count 249 K/mm3 (150-400); RDW Coefficient Variation 14.1 % (11.7-14.2); RDW Standard Deviation 50.6 fL (35.1-46.3); Red Blood Cell Count 4.92 M/mm3 (4.30-5.90); White Blood Cell Count 13.04 K/mm3 (4.00-11.30)
[2021-08-10 22:35] LABS: Alanine Aminotransfer (ALT/SGP 42 U/L (12-78); Albumin, Blood 2.6 g/dL (3.4-5.0); Albumin/Globulin Ratio 0.7 (0.8-1.8); Alk Phos 113 U/L (50-136); Anion Gap 6 mmol/L (6-16); Aspartate Aminotrans (AST/SGOT 63 U/L (12-37); Bilirubin, Total 1.1 mg/dL (0.1-1.0); Blood Urea Nitrogen 32 mg/dL (8-24); Bun/Creatinine Ratio 26.7 (12.0-20.0); CO2, Blood 26 mmol/L (21-32); Calcium, Blood 8.5 mg/dL (8.5-10.1); Chloride, Blood 104 mmol/L (98-108); Globulin, Blood 3.9 g/dL (2.2-4.0); Glomerular Filtration Rate >60 (60-); Glucose, Blood 139 mg/dL (70-99); Potassium, Blood 4.9 mmol/L (3.5-5.5); Sodium, Blood 136 mmol/L (136-145); Total Protein, Blood 6.5 g/dL (6.4-8.2); Troponin I 0.158 ng/mL (0.000-0.040)
[2021-08-11 01:13] LABS: Influenza A, PCR NEGATIVE (NEGATIVE); Influenza B, PCR NEGATIVE (NEGATIVE); Resp Syncytial Virus, PCR NEGATIVE (NEGATIVE); SARS-Cov-2 (COVID-19) PCR, MMC NEGATIVE (NEGATIVE)
[2021-08-11 05:01] LABS: BASOPHILS ABSOLUTE AUTO 0.08 K/mm3 (0.00-0.23); BASOPHILS PERCENT AUTO 1 % (0-2); EOSINOPHILS PERCENT AUTO 1 % (0-6); Hematocrit 48.7 % (37.0-53.0); IMMATURE GRAN ABSOLUTE AUTO 0.04 K/mm3 (0.00-0.10); IMMATURE GRAN PERCENT AUTO 0 % (0-1); LYMPHOCYTES ABSOLUTE AUTO 1.39 K/mm3 (0.84-5.20); LYMPHOCYTES PERCENT AUTO 12 % (21-46); MONOCYTES ABSOLUTE AUTO 1.16 K/mm3 (0.16-1.47); MONOCYTES PERCENT AUTO 10 % (4-13); Mean Corpuscular HGB 30.2 pg (26.0-34.0); Mean Corpuscular HGB Conc 30.8 g/dL (31.5-36.5); Mean Corpuscular Volume 98 fL (80-100); Mean Platelet Volume 10.4 fL (9.1-12.4); NEUTROPHILS ABSOLUTE AUTO 9.03 K/mm3 (1.96-9.15); NEUTROPHILS PERCENT AUTO 77 % (41-73); NRBC ABSOLUTE 0.02 K/mm3 (0.00-0.02); NRBC Auto 0.2 /100 WBC (0.0-0.2); Platelet Count 253 K/mm3 (150-400); RDW Coefficient Variation 14.2 % (11.7-14.2); RDW Standard Deviation 51.1 fL (35.1-46.3); Red Blood Cell Count 4.97 M/mm3 (4.30-5.90)
[2021-08-11 05:13] LABS: Albumin, Blood 2.6 g/dL (3.4-5.0); Albumin/Globulin Ratio 0.7 (0.8-1.8); Bilirubin, Total 1.1 mg/dL (0.1-1.0); Bun/Creatinine Ratio 23.5 (12.0-20.0); Calcium, Blood 8.5 mg/dL (8.5-10.1); Creatinine, Blood 1.32 mg/dL (0.60-1.20); Globulin, Blood 3.8 g/dL (2.2-4.0); Potassium, Blood 4.5 mmol/L (3.5-5.5); Total Protein, Blood 6.4 g/dL (6.4-8.2)
--- NOTE | 2021-08-11 05:14 | NUR ---
ASSUMED CARE OF PATIENT AT APPROXIMATELY 0420 FROM ED RN DAVID. PATIENT RESPONDS TO VERBAL STIMULUS. PATIENT MUMBLES WORDS AT TIMES; ANSWER QUESTIONS SOMETIMES AND FALLS ASLEEP MID SENTENCE AT TIMES. ADMISSION COMPLETE. SR ON TELE; OXYGEN SATURATION ABOVE 90% ON ROOM AIR; PATIENT HAVING APNEIC EPISODES. PATIENT HYPERTENSIVE; 177/144; REPORTED TO DR. JUSTIN; ALSO REPORTED TO DR. JUSTIN WAS THE HIGH BNP; FLUIDS GIVEN IN ER; APNEIC EPISODES; NO URINE OUTPUT; ORDERS FOR BLADDER SCAN. PIV S/L.
--- NOTE | 2021-08-11 05:24 | NUR ---
CALLED DR. JUSTIN TO UPDATE ON PATIENT; BP 165/111; KEEP BP UP FOR 24 HOURS; HYDRALAZINE FOR SBP OVER 180; HOLD OFF ON LASIX DUE TO DEHYDRATION; DAYSHIFT TO REASSESS; BLADDER SCAN 419; PATIENT STATING HE WILL PEE SOON IN THE URINE; HOLDING URINAL UP; FALLS ASLEEP W/ IN SECONDS. PATIENT HAVING APNEA EPISODES; ORDER FOR BIPAP/CPAP.
--- NOTE | 2021-08-11 06:04 | NUR ---
PATIENT BLOOD PRESSURE IN 190'S SYSTOLIC; PRN HYDRALAZINE GIVEN WITH GOOD RESULTS. PATIENT PLACED ON BIPAP; TOLERATING WELL. NO OTHER ACUTE CHANGES.
[2021-08-11 08:09] LABS: U Amphetamine Screen DETECTED; U Barbituate Screen Not Detected; U Benzodiazapine Screen Not Detected; U Buprenorphine Screen Not Detected; U Cannabinoids Screen DETECTED; U Cocaine Screen Not Detected; U Methadone Screen Not Detected; U Methamphetamine Screen DETECTED; U Opiates Screen DETECTED; U Oxycodone Screen Not Detected; U Phencyclidine Screen Not Detected; U Propoxyphene Screen Not Detected
--- NOTE | 2021-08-11 17:34 | NUR ---
PT SUMMARY: PT WITH SCHIZO AFFECTIVE DISORDER, PT ABLE TO ANSWER QUESTIONS SOMETIMES RESPONDING UNRELATED TOPIC, ABLE TO STATE NAME AND , FALLS ASLEEP QUICK, WAS ASKED IF HE KNOWS "NETO" (A FRIEND/CAREGIVER WHO'S CALLING FOR AN UPDATE), PT STATED "I HAVE A DOG", "ARE YOU CALLING AN AMBULANCE?" "AM I GOING TO [facility]?" SOMETIMES MUMBLING AND TALKING TO SELF. VITALS HRR SR 90'S, BP SYSTOLIC REMAINS ELEVATED 160-190'S HYDRALAZINE GIVEN TWICE FOR THE ONLY BROUGHT BP SYSTOLIC DOWN TO 140'S NOT FOR TOO LONG, PT STARTED ON [address] COLE DIDNT TAKE EFFECT EITHER, LABETALOL 10MG IV ORDERED PRN WAS GIVEN ONCE BEFORE THE END OF THE SHIFT, BROUGHT BPSYSTOLIC DOWN TO 120'S. DR COLE IS AWARE, TO KEEP BP SYSTOLIC LESS THAN 150'S. PT ON BIPAP WHEN SLEEPING HAS EPISODES OF APNEA SATS KEPT ABOVE 90%. ALSO NOTICED MILD MOTTLING ON THIGHS AND UPPER ARMS WHEN PT WAS UP IN THE CHAIR WENT AWAY AFTER PT GOT BACK IN BED. DR COLE AWARE. PT WAS ABLE TO RESUME DIET TODAY LONG PT REMAINS ALERT WHEN EATING, PT HAD ABOUT 4700MLS URINE OUTPUT FOR THE SHIFT, 800MLS WATER INTAKE. PT WAS UP IN THE CHAIR ONCE, SBA FOR TRANSFERS. PT NOW RESTING IN BED CALL LIGHTS IN REACH WILL REPORT TO ONCOMING SHIFT
--- NOTE | 2021-08-11 20:43 | NUR ---
ASSUMED CARE OF PATIENT AT APPROXIMATELY 1900 FROM IVORY Martinez RN. PATIENT RESPONDS TO VERBAL STIMULUS. PATIENT MUMBLES WORDS AT TIMES; ANSWER QUESTIONS SOMETIMES AND FALLS ASLEEP MID SENTENCE AT TIMES. SR ON TELE; OXYGEN SATURATION ABOVE ON BIPAP; NO COMPLAINTS OF PAIN, DIZZINESS OR NAUSEA. USES URINAL IN BED; PIV S/L.
[2021-08-12 04:12] LABS: BASOPHILS ABSOLUTE AUTO 0.07 K/mm3 (0.00-0.23); BASOPHILS PERCENT AUTO 1 % (0-2); EOSINOPHILS ABSOLUTE AUTO 0.31 K/mm3 (0.00-0.68); EOSINOPHILS PERCENT AUTO 3 % (0-6); Hematocrit 42.9 % (37.0-53.0); Hemoglobin 13.6 g/dL (13.5-17.5); IMMATURE GRAN ABSOLUTE AUTO 0.04 K/mm3 (0.00-0.10); IMMATURE GRAN PERCENT AUTO 0 % (0-1); LYMPHOCYTES ABSOLUTE AUTO 0.94 K/mm3 (0.84-5.20); LYMPHOCYTES PERCENT AUTO 10 % (21-46); MONOCYTES ABSOLUTE AUTO 0.98 K/mm3 (0.16-1.47); MONOCYTES PERCENT AUTO 10 % (4-13); Mean Corpuscular HGB 30.4 pg (26.0-34.0); Mean Corpuscular HGB Conc 31.7 g/dL (31.5-36.5); Mean Corpuscular Volume 96 fL (80-100); Mean Platelet Volume 10.5 fL (9.1-12.4); NEUTROPHILS ABSOLUTE AUTO 7.52 K/mm3 (1.96-9.15); NEUTROPHILS PERCENT AUTO 76 % (41-73); Platelet Count 215 K/mm3 (150-400); RDW Coefficient Variation 14.4 % (11.7-14.2); RDW Standard Deviation 50.4 fL (35.1-46.3); Red Blood Cell Count 4.47 M/mm3 (4.30-5.90); White Blood Cell Count 9.86 K/mm3 (4.00-11.30)
[2021-08-12 04:24] LABS: Anion Gap 7 mmol/L (6-16); Blood Urea Nitrogen 28 mg/dL (8-24); Bun/Creatinine Ratio 22.2 (12.0-20.0); CO2, Blood 27 mmol/L (21-32); Calcium, Blood 8.1 mg/dL (8.5-10.1); Chloride, Blood 103 mmol/L (98-108); Creatinine, Blood 1.26 mg/dL (0.60-1.20); Glomerular Filtration Rate >60 (60-); Glucose, Blood 156 mg/dL (70-99); Potassium, Blood 3.5 mmol/L (3.5-5.5); Sodium, Blood 137 mmol/L (136-145)
--- NOTE | 2021-08-12 05:34 | NUR ---
PATIENT HYPERTENSIVE; LABETOLOL GIVEN WITH GOOD RESULTS; PATIENT WORE BIPAP AL NIGHT; WOULD WAKE UP STATING HE WAS ANXIOUS AND WANTED A SNACK THEN WENT BACK TO BED. NO OTHER CHANGES TO REPORT.
[2021-08-12] MEDS ORDERED: HYDCHL25 PO (14:15)
[2021-08-12] MEDS ORDERED: AMLODIPINE BESY10 MG PO (14:17)
--- NOTE | 2021-08-12 14:52 | NUR ---
DISCHARGE: PATIENT DISCHARGED HOME. FRIEND, NETO, PICKED PATIENT UP AT EMERGENCY EXIT. PATIENT WAS TRANSFERRED TO EXIT VIA WHEELCHAIR. PATIENT PROVIDED DISCHARGE INSTRUCTIONS, MEDICATION EDUCATION, AND AN EXTRA COPY WAS PROVIDED TO CAREGIVER. [facility] WAS FAXED MEDICATION LIST AND PATIENT INSTRUCTED TO ASSEMBLER PLASTIC BOAT THERE. IV WAS REMOVED WNL. PATIENT THANKED US ALL FOR OUR EXCELLENT CARE.
== END 2021-08-12 14:59 | disposition home or self-care (01) | DRG 917 ==
LOC: ER 21:50 → PCU 08-11 02:44
PROVIDERS: Emergency Medicine; Family Medicine; Physician Assistant; Student in an Organized Health Care Education/Training Program; ADMIT Internal Medicine
DX: T43.621A Poisoning by amphetamines, accidental (unintentional), initial encounter (principal); G92.8 Other toxic encephalopathy; I50.23 Acute on chronic systolic (congestive) heart failure; I21.A1 Myocardial infarction type 2; I16.1 Hypertensive emergency; R65.10 Systemic inflammatory response syndrome (SIRS) of non-infectious origin without acute organ dysfunction; Z20.822 Contact with and (suspected) exposure to COVID-19; F15.10 Other stimulant abuse, uncomplicated; I11.0 Hypertensive heart disease with heart failure; F25.9 Schizoaffective disorder, unspecified; I87.8 Other specified disorders of veins; Z88.5 Allergy status to narcotic agent; Z88.8 Allergy status to other drugs, medicaments and biological substances; Z98.890 Other specified postprocedural states; F17.210 Nicotine dependence, cigarettes, uncomplicated
CPT/HCPCS: 0241U; 36415; 70450; 71045; 80048; 80053; 82947; 83605; 83735; 83880; 84145; 84484; 85025; 93005; 93010; 93970; 94660; 94762; 96365; 96366; 96375; 99285-25; A9270; J0360; J1650; J1940; J2270; J2405; J3370; J7030; J7050

== ENCOUNTER 2021-08-21 08:34 | Observation (INO) | payer OTHER ==
[~2021-08-21] VITALS: Ht 182.9 cm; Wt 102.0 kg
[~2021-08-21 08:34] MED LIST changes: +AMLODIPINE BESY10 MG PO; +HYDCHL25 PO
[2021-08-21 08:57] LABS: BASOPHILS ABSOLUTE AUTO 0.06 K/mm3 (0.00-0.23); BASOPHILS PERCENT AUTO 1 % (0-2); EOSINOPHILS ABSOLUTE AUTO 0.08 K/mm3 (0.00-0.68); EOSINOPHILS PERCENT AUTO 1 % (0-6); Hematocrit 44.4 % (37.0-53.0); Hemoglobin 14.6 g/dL (13.5-17.5); IMMATURE GRAN ABSOLUTE AUTO 0.07 K/mm3 (0.00-0.10); IMMATURE GRAN PERCENT AUTO 1 % (0-1); LYMPHOCYTES ABSOLUTE AUTO 1.09 K/mm3 (0.84-5.20); LYMPHOCYTES PERCENT AUTO 9 % (21-46); MONOCYTES ABSOLUTE AUTO 1.39 K/mm3 (0.16-1.47); MONOCYTES PERCENT AUTO 11 % (4-13); Mean Corpuscular HGB 30.4 pg (26.0-34.0); Mean Corpuscular HGB Conc 32.9 g/dL (31.5-36.5); Mean Corpuscular Volume 92 fL (80-100); Mean Platelet Volume 10.6 fL (9.1-12.4); NEUTROPHILS ABSOLUTE AUTO 10.09 K/mm3 (1.96-9.15); NEUTROPHILS PERCENT AUTO 79 % (41-73); NRBC ABSOLUTE 0.02 K/mm3 (0.00-0.02); NRBC Auto 0.2 /100 WBC (0.0-0.2); Platelet Count 245 K/mm3 (150-400); RDW Coefficient Variation 14.7 % (11.7-14.2); RDW Standard Deviation 49.6 fL (35.1-46.3); Red Blood Cell Count 4.81 M/mm3 (4.30-5.90); White Blood Cell Count 12.78 K/mm3 (4.00-11.30)
[2021-08-21] MEDS ORDERED: AZIT250 PO (09:03)
[2021-08-21] MEDS ORDERED: AMOCLA875 PO (09:03)
[2021-08-21] MEDS ORDERED: HYDCHL25 PO (09:04)
[2021-08-21] MEDS ORDERED: Lisinopril10 MG PO (09:04)
[2021-08-21 09:17] LABS: Troponin I 0.096 ng/mL (0.000-0.040)
[2021-08-21 09:18] LABS: Alanine Aminotransfer (ALT/SGP 90 U/L (12-78); Albumin, Blood 2.9 g/dL (3.4-5.0); Albumin/Globulin Ratio 0.8 (0.8-1.8); Alk Phos 128 U/L (50-136); Anion Gap 9 mmol/L (6-16); Aspartate Aminotrans (AST/SGOT 62 U/L (12-37); Bilirubin, Total 1.6 mg/dL (0.1-1.0); Blood Urea Nitrogen 36 mg/dL (8-24); CO2, Blood 26 mmol/L (21-32); Calcium, Blood 8.8 mg/dL (8.5-10.1); Chloride, Blood 101 mmol/L (98-108); Creatinine, Blood 1.16 mg/dL (0.60-1.20); Globulin, Blood 3.7 g/dL (2.2-4.0); Glomerular Filtration Rate >60 (60-); Glucose, Blood 141 mg/dL (70-99); Potassium, Blood 3.8 mmol/L (3.5-5.5); Sodium, Blood 136 mmol/L (136-145); Total Protein, Blood 6.6 g/dL (6.4-8.2)
[2021-08-21 13:05] LABS: PO2 Arterial 45.8 mmHg (80-100); pH Blood Arterial 7.41 (7.35-7.45)
[2021-08-21] MEDS ORDERED: ACET500 PO (14:29)
[2021-08-21 14:43] LABS: Source, Urine Clean Catch
--- NOTE | 2021-08-21 14:49 | NUR ---
PT ARRIVED TO PCU 5 VIA STRETCHER, REPORT RECEIVED FROM SHANNAN BRIGGS. PT WAS ABLE TO TRANSFER FROM BED STRETCHER, STAND BY ASSISTS. PT ALERT AND ORIENTED TO SELF, PLACE, TIME, HAS SCHIZO AFFECTIVE DISORDER, GETS SUPER ANXIOUS, FALLS ASLEEP QUICK, ON AND OFF ANSWERING QUESTIONS UNABLE TO FOCUS. VITALS HYPERTENSIVE SYSTOLIC 150-180'S, WAS GIVEN 10MG OF AMLODIPINE, HRR SR/ST 90-110'S, RR 20-30'S HAS EPISODES OF APNEIC/CHEYNESTOKES RESPIRATIONS, LUNGS COARSE AND WHEEZY, AFEBRILE. PT WAS ABLE TO VOID IN THE URINAL SPECIMEN SENT TO LAB FOR UTOX AND UA. RT CURRENTLY IN THE ROOM POSSIBLY TO APPLY BIPAP ON PT SINCE PT DESATS TO LOW 80'S DUE TO APNEIC EPISODES/CENTRAL APNEA PER RT. PT IN BED AT THIS TIME, RESTING, BED ALARM ON FOR SAFETY. WILL CONTINUE TO MONITOR PT
[2021-08-21 14:55] LABS: Appearance, Urine Clear (Clear); Bilirubin, Urine Neg (Neg); Blood, Urine 2+ (Neg); Color, Urine Yellow (P-Yellow); Glucose Qualitative, Urine Neg (Neg); Ketones, Urine Neg (Neg); Leukocyte Esterase, Urine Neg (Neg); Nitrite, Urine Neg (Neg); Protein, Urine 3+ (Neg); Urobilinogen, Urine NORM (Normal)
[2021-08-21 15:07] LABS: Bacteria Rare /hpf; Red Blood Cells, Urine 0-2 /hpf (0-2); Squamous Epithelial Cells Rare /hpf (Few); White Blood Cells, Urine 0-2 /hpf (0-5)
[2021-08-21 15:12] LABS: U Amphetamine Screen Not Detected; U Barbituate Screen Not Detected; U Benzodiazapine Screen Not Detected; U Buprenorphine Screen Not Detected; U Cannabinoids Screen DETECTED; U Cocaine Screen Not Detected; U Methadone Screen Not Detected; U Methamphetamine Screen Not Detected; U Opiates Screen Not Detected; U Oxycodone Screen Not Detected; U Phencyclidine Screen Not Detected; U Propoxyphene Screen Not Detected
--- NOTE | 2021-08-21 17:37 | NUR ---
Pt is too somnulent to eat dinner. Unable to awaken easily; dinner tray saved in unit pantry/kitchen.
--- NOTE | 2021-08-21 18:55 | NUR ---
PT HAS BEEN RESTING SINCE TRANSFER, INCREASED O2 UP TO 4L PER RT SATS REMAINED ABOVE 90% WILL OCCASIONALLY DESATS TO LOW 80'S BUT RECOVERS QUICK, WAS ALSO STARTED ON PO METOPROLOL 25MG BID, ELEVATED BP UP TO 180'S, NOW DOWN TO 120-130'S. PT ALSO HAD 2500 MLS URINE OUTPUT, UTOX CAME BACK POSITIVE TO CANNABIS. NO OTHER ISSUES WILL REPORT TO ONCOMING SHIFT
--- NOTE | 2021-08-22 03:10 | NUR ---
PT AWOKE TO VERBAL COMMUNICATION. SPOKE TO ABDIEL WILLIAMSON - UPDATED ON NO URINE OUTPUT TONIGHT, NO PO INTAKE, NO IV FLUIDS TONIGHT, HOWEVER PT RECEIVED LASIX DURING THE DAY WITH LARGE OUTPUT. TERI OKAYED FOR BLADDER SCAN. BLADDER SCAN SHOWS 430 CC URINE - PT DENIES THE URGE/NEED TO URINATE - REVIEWED WITH ABDIEL WILLIAMSON. WILL CONTINUE TO MONITOR. PT IS MORE ALERT NOW, RESPONDING MORE APPROPRIATELY TO QUESTIONS. PT DENIES ANY REQUESTS OR COMPLAINTS. AFTER CONVERSATION AND BLADDER SCAN, PT DRIFTED OFF BACK TO SLEEP. CALL LIGHT WITHIN REACH. BED ALARM ON. FLUIDS AT BEDSIDE. BED IN LOW POSITION. URINAL AT BEDSIDE.
[2021-08-22 05:44] LABS: BASOPHILS ABSOLUTE AUTO 0.06 K/mm3 (0.00-0.23); BASOPHILS PERCENT AUTO 1 % (0-2); EOSINOPHILS ABSOLUTE AUTO 0.14 K/mm3 (0.00-0.68); EOSINOPHILS PERCENT AUTO 1 % (0-6); Hematocrit 45.4 % (37.0-53.0); Hemoglobin 14.2 g/dL (13.5-17.5); IMMATURE GRAN ABSOLUTE AUTO 0.04 K/mm3 (0.00-0.10); IMMATURE GRAN PERCENT AUTO 0 % (0-1); LYMPHOCYTES ABSOLUTE AUTO 1.17 K/mm3 (0.84-5.20); LYMPHOCYTES PERCENT AUTO 11 % (21-46); MONOCYTES ABSOLUTE AUTO 1.29 K/mm3 (0.16-1.47); MONOCYTES PERCENT AUTO 12 % (4-13); Mean Corpuscular HGB 29.6 pg (26.0-34.0); Mean Corpuscular HGB Conc 31.3 g/dL (31.5-36.5); Mean Corpuscular Volume 95 fL (80-100); Mean Platelet Volume 11.1 fL (9.1-12.4); NEUTROPHILS ABSOLUTE AUTO 8.02 K/mm3 (1.96-9.15); NEUTROPHILS PERCENT AUTO 75 % (41-73); Platelet Count 226 K/mm3 (150-400); RDW Coefficient Variation 14.9 % (11.7-14.2); RDW Standard Deviation 51.6 fL (35.1-46.3); White Blood Cell Count 10.72 K/mm3 (4.00-11.30)
--- NOTE | 2021-08-22 06:04 | NUR ---
SHIFT SUMMARY - NO ACUTE CHANGES THROUGHOUT THIS SHIFT. PT SLEPT THROUGHOUT MOST OF THE NIGHT. PT WAS ABLE TO STAND AND USE THE URINAL THIS AM, WITH A SBA. PT REQUESTING CRANBERRY JUICE AND SNACKS - PROVIDED. WILL CONTINUE TO MONITOR PT UNTIL AM SHIFT. BED ALARM ON FOR PT SAFETY. FLUIDS AT BEDSIDE, BED IN LOW POSITION. CALL LIGHT WITHIN REACH.
[2021-08-22 06:14] LABS: Bun/Creatinine Ratio 28.7 (12.0-20.0); Calcium, Blood 8.5 mg/dL (8.5-10.1); Creatinine, Blood 1.29 mg/dL (0.60-1.20); Magnesium, Blood 2.1 mg/dL (1.6-2.4); Potassium, Blood 3.5 mmol/L (3.5-5.5)
--- NOTE | 2021-08-22 18:31 | NUR ---
SHIFT SUMMARY: PATIENT RESTED MOST OF THE MORNING AND AFTERNOON, AWAKING FOR MEAL TIMES WHICH HE ATE RAPIDLY IN ITS ENTIRETY. HE HAD A PANIC ATTACK THIS AFTERNOON WHILE VISITING WITH MD AND NOW HAS ANTI-ANXIETY MEDS. SPOKE WITH HAND GLASS CUTTER WHO STATES PATIENT "MUST RETURN TO [place] FOR MEDICATIONS BEFORE HE CAN COME HOME. HE CANNOT COME HOME UNTIL HE IS STABLE AND TAKING HIS MEDICATIONS." PATIENT LUCID THIS EVENING. HE SAT IN BED AND HAD AN EVENING SNACK, REMEMBERED THIS RN FROM HIS PREVIOUS STAY, AND USED CALL LIGHT APPROPRIATELY. AIDE GOT HIM A WARMED BLANKET HE STATED HE WAS COLD. WILL REPORT TO NOC RN.
[2021-08-23 03:46] LABS: Base Excess Venous 9.6 mmol/L; Bicarbonate Venous 31.6 mmol/L (24.0-30.0); PCO2 Venous 54.4 mmHg (38-42); PO2 Venous 80.6 mmHg (38-42); pH Blood Venous 7.41 (7.34-7.37)
[2021-08-23 05:06] LABS: Bun/Creatinine Ratio 25.8 (12.0-20.0); Calcium, Blood 8.2 mg/dL (8.5-10.1); Creatinine, Blood 1.32 mg/dL (0.60-1.20); Potassium, Blood 3.4 mmol/L (3.5-5.5)
--- NOTE | 2021-08-23 17:29 | NUR ---
SHIFT SUMMARY PT SLEEPING MAJORITY OF DAY, WAKING EASILY TO VERBAL STIMULI. PT CALM & COOPERATIVE T/O DAY W/ ONE EPISODE OF PT CALMLY BUT RESTLESSLY REPEATING "I'M GETTING PANICKY, I'M GETTING PANICKY. I NEED SOME LORAZA.. SOME ATIVAN OR SOMETHING." PT BECOMING MORE RESTLESS, UNABLE TO KEEP LEGS STILL. ORDERED PO PRN SEROQUEL PROVIDED PER EMAR. PT THEN CALM W/ NO FURTHER RESTLESSNESS AFTER MEDICATION. PT DEVOURING ALL MEALS QUICKLY TODAY, NEEDING FURTHER FOOD PROVIDED IN ADDITION TO MEAL TRAYS. PT VSS. SPO2 > 92% ON RA, WEARING 1-2L NC WHILE SLEEPING. MONITOR SHOWING AFIB, HR 60's-110. PT CALLING APPROPRIATELY FOR STANDING AT SIDE OF BED FOR URINAL USE.
--- NOTE | 2021-08-24 06:41 | NUR ---
PT IS CALM AND COOPERTIVE THROUGHOUT SHIFT. RESPECTFUL TO STAFF. SOME INTERMITTENT SHORTNESS OF BREATH THROUGHOUT SHIFT DURING WHICH PATIENT TAKE ABOUT 20 TACHYPNIC BREATHS O2 SAT DROPS TO 87% BEFORE IMMEDIATLY RETURNING TO 94% ON RA. THESE EPISODES WERE NOTED WHEN PATIENT WAS EATING, WHEN PATIENT WAS WOKEN FOR VITALS, WHEN PATIENT WAS SITTING AT EDGE OF BED TO VOID. PROVIDED PATIENT WITH 1L O2 NC WHEN SLEEPING AFTER WHICH PATIENT APPEARS TO REST MORE COMFORTABLY.
--- NOTE | 2021-08-24 13:08 | NUR ---
AMA PT FOUND FULLY DRESSED IN RM, REQUESTING PIV BE REMOVED FOR HIM TO GO HOME. PT RESTLESS IN RM. PT AGREEABLE TO REMAIN IN RM WHILE THIS RN & LIFT OPERATOR CONTACT 's W/ INTENTIONS OF AN AGREEABLE PLAN FOR PT. MD FAROOQ NOTIFIED OF PT's REQUEST TO LEAVE. STATING PT IS NOT ON A HOLD & WOULD BE OKAY TO GO BACK TO [facility] IF PT PREFERRED & STATED THE PT WOULD NEED TO CONTINUE TAKING PO SEROQUEL @ BEDTIME. MD REDD NOTIFIED WELL. CARE MANAGEMENT CONTACTED W/ NO ANSWER AT THE TIME. UPON RETURN TO , PT GONE, PIV FOUND IN RM, REMOVED FROM PT. PT FOUND IN THE TAY BY LIFT OPERATOR, W/ PT THEN GOING TO [employer] PRESSING NUMBERS ON MACHINE, PRINTING MULTIPLE RECIEPTS & POCKETING RECEIPTS. PT THEN UPSET AT [facility] WHEN ANOTHER WOMAN APPROACHED, STATING "THE LADY W/ THE BIG HEAD THAT WAS DISTORTED CAME & SAID A LOT OF WORDS & THE [employer] STOPPED WORKING." PT THEN AGREEABLE TO RETURN TO PCU . PT BACK TO , AGREEABLE TO TAKE PO PRN SEROQUEL. PT TOOK THE MED & BEGAN TALKING TO THE WALL. PT THEN UNWILLING TO REMAIN IN OR HOSPITAL AT ALL. THIS RN FOLLOWED PT THROUGH THE HALLWAY W/ ATTEMPT TO CONVINCE PT TO RETURN TO & CONTINUE CARE OR PROPER DISCHARGE. PT UNWILLING. PT LEFT AMA DESPITE EFFORTS @ APPROX 1300.
== END 2021-08-24 14:17 | disposition left against medical advice (07) ==
LOC: ER 08:34 → PCU 08:35
PROVIDERS: Internal Medicine; Nurse Practitioner Acute Care; Physician Assistant; ADMIT Internal Medicine
DX: G92.8 Other toxic encephalopathy (principal); I11.0 Hypertensive heart disease with heart failure; I50.22 Chronic systolic (congestive) heart failure; F25.1 Schizoaffective disorder, depressive type; F15.10 Other stimulant abuse, uncomplicated; I16.0 Hypertensive urgency; G47.33 Obstructive sleep apnea (adult) (pediatric); J44.9 Chronic obstructive pulmonary disease, unspecified; E11.9 Type 2 diabetes mellitus without complications; R77.8 Other specified abnormalities of plasma proteins; F17.210 Nicotine dependence, cigarettes, uncomplicated; E66.01 Morbid (severe) obesity due to excess calories; Z68.32 Body mass index [BMI] 32.0-32.9, adult; Z88.8 Allergy status to other drugs, medicaments and biological substances; Z88.5 Allergy status to narcotic agent; Z91.14 Patient's other noncompliance with medication regimen
CPT/HCPCS: 36415; 36600; 70450; 71045; 71046; 80048; 80053; 81001; 82140; 82803; 82947; 83605; 83735; 83880; 84145; 84484; 85025; 93005; 93010; 94640; 94760; 94762; 96374; 96375; 99285-25; A9270; G0480; J0456; J0696; J1630; J1650; J1940; J7050

== ENCOUNTER 2021-09-11 17:59 | Emergency (ER) | payer OTHER ==
[~2021-09-11] VITALS: Ht 182.9 cm; Wt 108.9 kg
[~2021-09-11 17:59] MED LIST changes: +ACET500 PO; +AMOCLA875 PO; +AZIT250 PO; +Lisinopril10 MG PO
[2021-09-11 18:45] LABS: BASOPHILS ABSOLUTE AUTO 0.05 K/mm3 (0.00-0.23); BASOPHILS PERCENT AUTO 0 % (0-2); EOSINOPHILS ABSOLUTE AUTO 0.08 K/mm3 (0.00-0.68); EOSINOPHILS PERCENT AUTO 1 % (0-6); Hematocrit 50.9 % (37.0-53.0); Hemoglobin 16.2 g/dL (13.5-17.5); IMMATURE GRAN ABSOLUTE AUTO 0.07 K/mm3 (0.00-0.10); IMMATURE GRAN PERCENT AUTO 1 % (0-1); LYMPHOCYTES PERCENT AUTO 6 % (21-46); MONOCYTES ABSOLUTE AUTO 0.75 K/mm3 (0.16-1.47); MONOCYTES PERCENT AUTO 6 % (4-13); Mean Corpuscular HGB 28.8 pg (26.0-34.0); Mean Corpuscular HGB Conc 31.8 g/dL (31.5-36.5); Mean Corpuscular Volume 91 fL (80-100); NEUTROPHILS ABSOLUTE AUTO 10.87 K/mm3 (1.96-9.15); NEUTROPHILS PERCENT AUTO 87 % (41-73); RDW Coefficient Variation 14.5 % (11.7-14.2); RDW Standard Deviation 48.9 fL (35.1-46.3); Red Blood Cell Count 5.62 M/mm3 (4.30-5.90); White Blood Cell Count 12.52 K/mm3 (4.00-11.30)
[2021-09-11 19:10] LABS: Alanine Aminotransfer (ALT/SGP 29 U/L (12-78); Albumin, Blood 3.4 g/dL (3.4-5.0); Albumin/Globulin Ratio 0.9 (0.8-1.8); Alk Phos 123 U/L (50-136); Anion Gap 8 mmol/L (6-16); Aspartate Aminotrans (AST/SGOT 26 U/L (12-37); Bilirubin, Total 0.6 mg/dL (0.1-1.0); Blood Urea Nitrogen 24 mg/dL (8-24); Bun/Creatinine Ratio 19.5 (12.0-20.0); CO2, Blood 29 mmol/L (21-32); Chloride, Blood 100 mmol/L (98-108); Creatinine, Blood 1.23 mg/dL (0.60-1.20); Ethanol (Alcohol), Blood, Med <3 mg/dL; Globulin, Blood 3.6 g/dL (2.2-4.0); Glomerular Filtration Rate >60 (60-); Glucose, Blood 175 mg/dL (70-99); Potassium, Blood 3.4 mmol/L (3.5-5.5); Salicylate 2.4 mg/dL (2.8-20.0); Sodium, Blood 137 mmol/L (136-145)
[2021-09-11 19:12] LABS: Mean Platelet Volume 9.9 fL (9.1-12.4); Platelet Count 173 K/mm3 (150-400)
[2021-09-11 19:13] LABS: Source, Urine Voided
[2021-09-11 19:20] LABS: Appearance, Urine Clear (Clear); Bilirubin, Urine Neg (Neg); Blood, Urine 3+ (Neg); Color, Urine Yellow (P-Yellow); Glucose Qualitative, Urine Neg (Neg); Ketones, Urine Neg (Neg); Leukocyte Esterase, Urine Neg (Neg); Nitrite, Urine Neg (Neg); Protein, Urine 4+ (Neg); Urobilinogen, Urine NORM (Normal); pH, Urine 6.5 (5.0-8.0)
[2021-09-11 19:34] LABS: U Amphetamine Screen DETECTED; U Barbituate Screen Not Detected; U Benzodiazapine Screen Not Detected; U Buprenorphine Screen Not Detected; U Cannabinoids Screen DETECTED; U Cocaine Screen Not Detected; U Methadone Screen Not Detected; U Methamphetamine Screen DETECTED; U Opiates Screen Not Detected; U Oxycodone Screen Not Detected; U Phencyclidine Screen Not Detected; U Propoxyphene Screen Not Detected
[2021-09-11 19:36] LABS: Acetaminophen, Random <2.0 ug/mL (10.0-30.0)
[2021-09-11 19:44] LABS: Bacteria Few /hpf; Squamous Epithelial Cells Few /hpf (Few); White Blood Cells, Urine 0-2 /hpf (0-5)
== END 2021-09-11 21:47 | disposition home or self-care (01) ==
LOC: ER 17:59
PROVIDERS: Emergency Medicine
DX: F15.10 Other stimulant abuse, uncomplicated (principal); R45.1 Restlessness and agitation; I11.0 Hypertensive heart disease with heart failure; I50.9 Heart failure, unspecified; E11.9 Type 2 diabetes mellitus without complications; F17.210 Nicotine dependence, cigarettes, uncomplicated; Z88.5 Allergy status to narcotic agent; Z88.8 Allergy status to other drugs, medicaments and biological substances; Z79.899 Other long term (current) drug therapy
CPT/HCPCS: 36415; 80053; 81001; 84484; 85025; 93005; 93010; G0480; J1885; J2060

== ENCOUNTER 2022-02-08 11:24 | Inpatient (IN) | payer OTHER ==
[~2022-02-08] VITALS: Ht 182.9 cm; Wt 107.3 kg
[2022-02-08 12:29] LABS: BASOPHILS ABSOLUTE AUTO 0.07 K/mm3 (0.00-0.23); BASOPHILS PERCENT AUTO 1 % (0-2); EOSINOPHILS ABSOLUTE AUTO 0.01 K/mm3 (0.00-0.68); EOSINOPHILS PERCENT AUTO 0 % (0-6); Hematocrit 52.7 % (37.0-53.0); Hemoglobin 16.1 g/dL (13.5-17.5); IMMATURE GRAN ABSOLUTE AUTO 0.08 K/mm3 (0.00-0.10); IMMATURE GRAN PERCENT AUTO 1 % (0-1); LYMPHOCYTES ABSOLUTE AUTO 1.09 K/mm3 (0.84-5.20); LYMPHOCYTES PERCENT AUTO 7 % (21-46); MONOCYTES ABSOLUTE AUTO 1.46 K/mm3 (0.16-1.47); MONOCYTES PERCENT AUTO 10 % (4-13); Mean Corpuscular HGB 27.1 pg (26.0-34.0); Mean Corpuscular HGB Conc 30.6 g/dL (31.5-36.5); Mean Corpuscular Volume 89 fL (80-100); Mean Platelet Volume 11.8 fL (9.1-12.4); NEUTROPHILS ABSOLUTE AUTO 12.72 K/mm3 (1.96-9.15); NEUTROPHILS PERCENT AUTO 82 % (41-73); NRBC ABSOLUTE 0.02 K/mm3 (0.00-0.02); NRBC Auto 0.1 /100 WBC (0.0-0.2); Platelet Count 239 K/mm3 (150-400); RDW Coefficient Variation 17.8 % (11.7-14.2); RDW Standard Deviation 54.8 fL (35.1-46.3); Red Blood Cell Count 5.95 M/mm3 (4.30-5.90); White Blood Cell Count 15.43 K/mm3 (4.00-11.30)
[2022-02-08 13:34] LABS: Ethanol (Alcohol), Blood, Med <3 mg/dL; Salicylate 3.3 mg/dL (2.8-20.0)
[2022-02-08 13:35] LABS: Alanine Aminotransfer (ALT/SGP 28 U/L (12-78); Albumin, Blood 2.9 g/dL (3.4-5.0); Albumin/Globulin Ratio 0.7 (0.8-1.8); Alk Phos 141 U/L (50-136); Anion Gap 10 mmol/L (6-16); Aspartate Aminotrans (AST/SGOT 35 U/L (12-37); Bilirubin, Total 1.8 mg/dL (0.1-1.0); Blood Urea Nitrogen 25 mg/dL (8-24); Bun/Creatinine Ratio 21.6 (12.0-20.0); CO2, Blood 26 mmol/L (21-32); Calcium, Blood 8.9 mg/dL (8.5-10.1); Chloride, Blood 101 mmol/L (98-108); Creatinine, Blood 1.16 mg/dL (0.60-1.20); Globulin, Blood 4.3 g/dL (2.2-4.0); Glomerular Filtration Rate 76 (60-); Glucose, Blood 131 mg/dL (70-99); Potassium, Blood 3.6 mmol/L (3.5-5.5); Sodium, Blood 137 mmol/L (136-145); Total Protein, Blood 7.2 g/dL (6.4-8.2)
[2022-02-08 13:36] LABS: Acetaminophen, Random <2.0 ug/mL (10.0-30.0)
[2022-02-08 14:05] LABS: Source, Urine Clean Catch
[2022-02-08 14:21] LABS: Appearance, Urine Clear (Clear); Bilirubin, Urine Neg (Neg); Blood, Urine 3+ (Neg); Color, Urine Yellow (P-Yellow); Glucose Qualitative, Urine Neg (Neg); Ketones, Urine Neg (Neg); Leukocyte Esterase, Urine Neg (Neg); Nitrite, Urine Neg (Neg); Protein, Urine 4+ (Neg); Urobilinogen, Urine NORM (Normal)
[2022-02-08 14:43] LABS: White Blood Cells, Urine 0-2 /hpf (0-5)
[2022-02-08 14:44] LABS: Bacteria Few /hpf; Hyaline Casts 0-2 /lpf (0-2); Squamous Epithelial Cells Not Seen /hpf (Few)
[2022-02-08 14:48] LABS: Base Excess Venous 0.5 mmol/L; Bicarbonate Venous 24.5 mmol/L (24.0-30.0); PCO2 Venous 46.6 mmHg (38-42); PO2 Venous 148 mmHg (38-42); pH Blood Venous 7.36 (7.34-7.37)
[2022-02-08 15:14] LABS: U Cannabinoids Screen DETECTED; U Methamphetamine Screen DETECTED
[2022-02-08 15:15] LABS: U Amphetamine Screen DETECTED; U Barbituate Screen Not Detected; U Benzodiazapine Screen Not Detected; U Buprenorphine Screen Not Detected; U Cocaine Screen Not Detected; U Methadone Screen Not Detected; U Opiates Screen Not Detected; U Oxycodone Screen Not Detected; U Phencyclidine Screen Not Detected; U Propoxyphene Screen Not Detected
--- NOTE | 2022-02-08 18:15 | NUR ---
ARRIVAL TO PCU/SHIFT SUMMARY PATIENT ARRIVED TO PCU AT 1740. PATIENT ARRIVED VIA GURNEY FROM ED. PATIENT WAS DIAPHORETIC, CLAMMY, AND NONRESPONSIVE UPON ARRIVAL. THIS RN AND BROKER ASSISTANT DID A STERNUM RUB AND PATIENT WOULD NOT WAKE UP. PER BROKER ASSISTANT REPORT PATIENT WILL AWAKEN WHEN HE HAS TO PEE, AND THEN FALLS RIGHT BACK ASLEEP. PATIENT TRANSFERED BY SLIDER SHEET TO PCU BED. VSS. TELE SINUSTACH 103. THIS RN DID THE ADDMISSIONA ASSESSMENT AND QUICK ADMIT, BUT WAS UNABLE TO COMPLETE THE FULL ADMISSION PROCESS DUE TO THE PATIENTS MENTATION. THIS RN WILL PASS IT ALONG TO MILLINERY WORKER. PATIENT LUNG SOUNDS ARE WHEEZY BILATERALLY. PATIENT IS ON 2L NC WHEN SLEEPING DUE TO JASBIR AND SPO2 >95%. THIS RN IS UNABLE TO ASSESS IF THE PATIENT IS FEELING SHORT OF BREATH, PAIN OR CHEST PAIN DUE TO THE PATIENT MENTATION. PATIENT HAS EDEMA BILATERALLY +2, AND FAINT PEDIS PULSES. PATIENT LEGS ARE DUSKY COLORATION. STRONG RADIAL PULSE. CAP REFILL <3SECONDS. PATIENT HAS HERINA. ABD IS MILD DISTENTION AND ACTIVE. PATIENT HAS A SCAB TO THE BOTTOM OF HIS RIGHT FOOT AND REDDNESS TO HIS BOTTOM. PATIENT IS CURRENTLY LAYING ON HIS SIDE. PATIENT BELONGINGS ARE IN THE BAGS FROM THE ER IN THE CHAIR IN HIS ROOM. AFTER ABOUT 20 MINS OF BEING ON THE UNIT PATIENT YELLS OUT " I HAVE TO PEE" THIS RN BROUGHT IN URINAL AND PATIENT USED IT INDEPDENTLY WITH QUICK MOTIONS. THIS RN TRIED TO ASK THE PATIENT QUESTIONS AND ORIENTATE HIM TO THE ROOM AND CALL LIGHT, AND PATIENT LAID BACK IN BED AND FELL ASLEEP. THIS RN DID A STERNUM RUB TO TRY TO WAKE PATIENT BACK UP, AND PATIENT WOULD NOT. PER REPORT THE BROKER ASSISTANT STATED THAT THE PATIENT WAS HAVING A FLIGHT OF IDEAS WHEN FIRST ARRIVING AND HEARING VOICES. THIS RN PERFORMED THE ADMIT ASSESSMENT, BUT NOT EVERYTHING WAS BEING ABLE TO BE ASSESSED DUE TO PATIENTS COGNTIVE STATUS. CALL LIGHT IS WITHIN REACH, BED IN LOWEST POSITION, AND BED ALARM ON. WILL CONITNUE TO MONITOR AND PROVIDE CARE UNTIL HAND OFF WITH NEXT SHIFT.
[2022-02-09 04:20] LABS: BASOPHILS ABSOLUTE AUTO 0.05 K/mm3 (0.00-0.23); BASOPHILS PERCENT AUTO 0 % (0-2); EOSINOPHILS ABSOLUTE AUTO 0.15 K/mm3 (0.00-0.68); EOSINOPHILS PERCENT AUTO 1 % (0-6); Hematocrit 44.7 % (37.0-53.0); Hemoglobin 13.4 g/dL (13.5-17.5); IMMATURE GRAN ABSOLUTE AUTO 0.05 K/mm3 (0.00-0.10); IMMATURE GRAN PERCENT AUTO 0 % (0-1); LYMPHOCYTES ABSOLUTE AUTO 1.03 K/mm3 (0.84-5.20); LYMPHOCYTES PERCENT AUTO 8 % (21-46); MONOCYTES ABSOLUTE AUTO 1.18 K/mm3 (0.16-1.47); MONOCYTES PERCENT AUTO 10 % (4-13); Mean Corpuscular Volume 90 fL (80-100); Mean Platelet Volume 10.4 fL (9.1-12.4); NEUTROPHILS ABSOLUTE AUTO 9.76 K/mm3 (1.96-9.15); NEUTROPHILS PERCENT AUTO 80 % (41-73); Platelet Count 202 K/mm3 (150-400); RDW Coefficient Variation 17.1 % (11.7-14.2); RDW Standard Deviation 55.9 fL (35.1-46.3); Red Blood Cell Count 4.96 M/mm3 (4.30-5.90); White Blood Cell Count 12.22 K/mm3 (4.00-11.30)
[2022-02-09 04:43] LABS: Calcium, Blood 8.5 mg/dL (8.5-10.1); Creatinine, Blood 1.18 mg/dL (0.60-1.20); Potassium, Blood 3.1 mmol/L (3.5-5.5)
--- NOTE | 2022-02-09 07:20 | NUR ---
NOC SHIFT SUMMARY PT SLEPT WELL OVERNIGHT. LETHARGIC AND ORIENTED X1-2 WHEN AWAKE. PT BECAME MORE ALERT THE NIGHT WENT ON OR IF HE NEEDED TO URINATE. VSS PER PT TREND, ON 2-4L NC. FOLLOWING COMMANDS BUT FALLS ASLEEP QUICKLY WHEN NOT BEING TALKED TO. SR/ST ON TELEMETRY, BUT HAD NEW APPARENT BBB. EKG OBTAINED AND NOTIFIED DR. FISCHER OF RESULTS. NO NEW ORDERS. WILL CONTINUE TO MONITOR AND PASS ON TO DAY RN.
--- NOTE | 2022-02-09 12:03 | NUR ---
CARE ASSUMPTION THIS RN ASSUMED CARE AT 0700 FROM AVIVA BRIGGS. VSS. BP HYPERTENSIVE. MD NOTIFED WHEN DOING AM ROUNDS. PATIENT IS ALERT AT TIMES, BUT FALLS BACK ASLEEP QUICKLY. PATIENT RESPONDS TO VERABL STIMULI. PATIENT IS ORIENTED TO SELF. PATIENT HAS FLIGHT OF IDEAS AND CONFUSION ABOUT WHERE HE IS AND ITEMS IN THE ROOM. PATIENT TALKS TO HIMSELF OFF AND ON IN THE ROOM. WHEN THIS RN ASKED WHO HE WAS TALKING TO HE STATES HIMSELF. ABD HAS AN UMBILICAL HERINA. LUNG SOUNDS WHEEZY. PATIENT BECOMES SHORT OF BREATH WHEN LYING FLAT AND THIS RN ENCOURAGES PATIENT TO TAKE DEEP BREATHS AND SMELL THE ROSES. PATIENT HAS STRONG RADIAL AND PEDIS PULSES. PATIENT IS DIAPHEROTIC AT TIMES. SEE SHIFT ASSESSMENT FOR FURTHER DETIALS. PATIENT LOST IV ACCESS THIS AM. IV MEDICATIONS LATE DUE TO THIS UNTIL IV ACCESS WAS ABLE TO BE REESTABLISHED. AFTER LUNCH PATIENT IS MORE TALKATIVE IN ROOM, BUT FALLS BACK ASLEEP QUICKLY. PATIENT IS ABLE TO MAKE NEEDS KNOWN WHEN HE HAS TO PEE. REMINDERS TO USE THE CALL LIGHT. CALL LIGHT WITHIN REACH AND BED IN LOWEST POSITION. WILL CONTINUE TO MONITOR AND PROVIDE CARE.
--- NOTE | 2022-02-09 17:33 | NUR ---
SHIFT SUMMARY PATIENT NEURO REMAINS IN THE SAME FROM PERVIOUS NOTE. VSS. SPO2 >90% ON 2L NC OR ROOM AIR. PATIENT DESATS WHEN SLEEPING AND PATIENT OXYGEN WILL COME OUT WHEN HE IS SLEEPING. PATIENT WAS MUCH MORE AWAKE THIS AFTERNOON TALKING TO HIMSELF IN ROOM. PATIENT WOULD SAY THAT HE HAD MEDICAL TUBES FOR HIS ARMS AND THIS RN WOULD REEDUCATE HIM THAT THERE WERE NO TUBES AND NOTHING ON HIS ARM BESIDE HIS IV. PATIENT HAS FLIGHT OF IDEAS WHEN TALKING. PATIENT STATED HE WAS FEELING ANXIOUS. THIS RN MEDICATED THE PATIENT PER EMAR. PATIENT HAS BEEN SLEEPING ON AND OFF THIS EVENING. PATIENT AWAKES TO VERABL STIMULI AND RESPONDS TO QUESTIONS, BUT THEN FALLS BACK ASLEEP. PATIENT IS CURRENTLY EATING HIS DINNER. PATIENT IS ABLE TO MAKE NEEDS KNOWN. THIS RN TRIED TO FINISH THE ADMISSION, BUT WAS NOT SUCCESSFUL. THE ADMISSION HISTORY AND MED REC STILL NEEDS TO BE COMPLETED. THIS RN WILL INFORM THE NIGHT RN. PATIENT CALLS OUT INSTEAD OF USING CALL LIGHT TO MAKE HIS NEEDS KNOWN. THIS RN HAS EDUCATED THE PATIENT MULTIPLE TIMES ON USING HIS CALL LIGHT IF HE NEEDS ASSITANCE. CALL LIGHT IS WITHIN REACH AND BED ALARM IS ON. WILL CONTINUE TO MONITOR AND PROVIDE CARE UNTIL HAND OFF WITH NEXT SHIFT.
[2022-02-10 05:35] LABS: Bun/Creatinine Ratio 24.6 (12.0-20.0); Creatinine, Blood 1.18 mg/dL (0.60-1.20); Magnesium, Blood 2.2 mg/dL (1.6-2.4); Potassium, Blood 3.1 mmol/L (3.5-5.5)
--- NOTE | 2022-02-10 06:11 | NUR ---
NOC SHIFT SUMMARY PT SLEPT WELL OVERNIGHT. VSS PER PT TREND. REQUIRING 2L NC WHILE ASLEEP AND RA WHEN AWAKE. PERIODS OF APNEA NOTED DURING SLEEP. NO COMPLAINTS OF PAIN. ST ON TELEMETRY IN 100-110S. ORIENTED X 1-2, COOPERATIVE AND PLEASANT WHEN AWAKE. WILL CONTINUE TO MONITOR AND PASS ON TO DAY RN.
--- NOTE | 2022-02-10 09:57 | NUR ---
CARE ASSUMPTION THIS RN ASSUMED CARE AT 0700 FROM AVIVA BRIGGS. PATIENT VSS. TELE SINUS TACH 100-115. PATIENT IS ALERT AT TIMES, BUT FALLS BACK ASLEEP QUICKLY. RESPONDS TO VERBAL STIMULI. ORIENTED TO SELF, PERSON, AND SURROUNDINGS. PERRLA. PATIENT REPORTS NO PAIN. PATIENT REPORTS SHORTNESS OF BREATH AT TIMES. ON 2L NC SPO2 >95%. LUNG SOUNDS COARSE UPPER LOBES AND DIM LOWER LOBES. PATIENT REPROTS MILD CHEST PAIN THAT COMES AND GOES. MD WILLSON MADE AWARE. STRONG RADAIL PULSES AND PEDIS. +2 EDEMA LOWER EXTREMITIES. DUSKY APPERANCE IN LOWER EXTREMITIES. ABD IS SOFT, NONTENDER, MILD DISTENTION AND UMBILIC HERNIA PRESENT. SKIN HAS SCAB ON RIGHT FOOT, LEFT EYE BROW, REDNESS TO BOTTOM THATS BLANACHABLE ENCOURAGED REPOSTIONING. SEE SHIFT ASSESSMENT FOR FULL DETIALS. MD WILLSON IN TO SEE PATIENT THIS MORNING. PATIENT TALKING ABOUT HOW HIS MOM WAS CANCELLED AND DOESN'T LIVE THERE ANYMORE. MD WILLSON AND THIS RN ASKED [facility] PATIENT TO CLARIFY AND HE SAID HIS MOM WAS CANCELLED GOT KICKED OUT OF HER PLACE, SO DID HIS BROTHER AND DOG. MD WILLSON ASKED THE PATIENT IF HE WOULD LIKE HIM TO GET IN CONTACT WITH HIS FAMILY, PATIENT STATED YES. THERE WAS NO FAMILY CONTACT LISTED ON HIS FACESHET. THIS RN ASKED FOR THE FAMILY NUMBER BUT PATIENT DIDN'T KNOW. MD WILLSON MADE PATIENT MEDICAL STATUS WITH TELE. AWAITING ECHO AND MD WILLSON SAID TO HAVE ECHO DONE EVEN WITH HIS SINUSTACHYCARDIA. THIS RN WILL PASS ALONG IN REPORT AND TO THE ECHO PEOPLE WHEN THEY CAME BY. PATIENT HAD 9 BEAT SVT THIS AM MD WILLSON IS AWARE. THIS RN TRIED TO DO COMPLETE THE ADMIT BUT PATIENT UNABLE TO STAY AWAKE AND STATED HE DOESN'T KNOW HIS MEDICATIONS. PATIENT IS CALM COOPERATIVE. PATIENT NEEDS REMINDERS TO USE CALL LIGHT. CALL LIGHT IS WITHIN REACH AND BED IN LOWEST POSITION BED ALARM ON. PATIENT ABLE TO STAND TO USE BEDSIDE URINAL. PATIENT TAKES MEDS WITH WATER. AWAITING TO GIVE REPORT TO MED FLOOR RN.
--- NOTE | 2022-02-10 11:00 | NUR ---
REPORT TO MEDICAL FLOOR RN THIS RN GAVE REPORT TO BEATRIZ ON MEDICAL FLOOR. PATIENT LEFT VIA PCU BED AND WAS IN NO DISTRESS. ALL OF PATIENT BELONGINGS ARE WITH PATIENT.
[2022-02-10] MEDS ORDERED: FURO40 PO (19:49)
--- NOTE | 2022-02-10 19:49 | NUR ---
SHIFT SUMMARY; ASSUMED COMFORT AND CARE OF THIS PATIENT AFTER HE TRANSFERRED TO MEDICAL FLOOR FROM PCU TODAY. HE IS ORIENTED TO SELF ON TRANSFER. MAKES BIZZARE STATEMENTS AND IS CONCERNING THAT HE SPEAKS OF DISEMBOWLING ANIMALS AND THEN DISEMBOWLING PEOPLE TO COMPARE THEM. HE ALSO YELLS OUT AND THEN SAYS HE DOES NOT REMEMBER WHAT HE NEEDS. HE MUMBLES STATEMENTS THAT ARE CONCERNING I.E.... I WONDER WHAT SHE WOULD LOOK LIKE WITH HER SKIN OFF. OR I CAN'T CUT ANYTHING IF I DON'T HAVE MY CHAINSAW. HE ALSO SAYS HE CANCELLED HIS MOTHER AND HIS BROTHER. [facility] IS CONTACTED AND PHARMACY LIST IS FAXED OVER WITH HIS MED LIST. FRIEND CHARLIE CALLS WHO CLAIMS TO BE HIS SISTER HOWEVER PATIENT SAYS SHE IS LIKE A SISTER BUT NOT HIS REAL SISTER. PHONE NUMBER [phone]. PATIENT HAS LARGE UMBILICAL HERNIA APPROX GRAPEFRUIT SIZE. HE HAS BILATERAL EXTREMITIES THAT ARE DISCOLORED AND HAS SCABBING AND OPEN DIME SIZE WOUNDS. HE HAS A SCAB ON HIS LEFT EYEBROW AND A SCAB ON BOTTOM OF HIS LEFT FOOT. HE BUTTOCKS IS RED AND BLANCHES WITH TOUCH. REPORT AND HAND OFF TO NOC SHIFT RN.
--- NOTE | 2022-02-11 03:31 | NUR ---
HEAD CUSTODIAN SUMMARY AT SHIFT COMMENCE WAS TRANSPORTED TO RADIOLOGY FOR SCAN FOLLOW UP FROM EARLIER TESTS. SEE RADIOLOGY DOCUMENTATION FOR RESULTS. O2 PER NC CONTINUES. RESDIRECTED AT TIMES AND IS COMPLIANT WITH REQUESTS. DRINKING LOTS OF FLUIDS. BP ELEVATED, RECEIVED HYDRALAZINE. REMAINS ASYMPTOMATIC. CALL LIGHT IN REACH. NO C/O PAIN. NO NOTED ACUTE RESP DISTRESS. WILL CONTINUE TO MONITOR
--- NOTE | 2022-02-11 04:40 | NUR ---
CALLING OUT FOR "NURSE". ON ARRIVAL AT BEDSIDE, VOICED HE HAD A "NIGHTMARE"..THAT INVOLVED "A BLOODY BOARD".. DISCUSSED DREAM WITH NURSE, SEEMED TO CALM DOWN. WARM BLANKET APPLIED. CALL LIGHT IN REACH
[2022-02-11 06:24] LABS: Bun/Creatinine Ratio 18.5 (12.0-20.0); Calcium, Blood 8.5 mg/dL (8.5-10.1); Creatinine, Blood 1.08 mg/dL (0.60-1.20); Magnesium, Blood 2.2 mg/dL (1.6-2.4); Potassium, Blood 3.7 mmol/L (3.5-5.5)
--- NOTE | 2022-02-11 18:42 | NUR ---
SHIFT SUMMARY PATIENT IS PLEASANT AND COOPERATIVE WITH CARE. WHILE TALKING WITH PATIENT, CONTINUALLY NEED TO REDIRECT PATIENT BACK TO TOPIC AT HAND. HX OF SCHIZOPHRENIA AND METH USE. PT STATES HE IS HAVING HALLUCINATIONS AND WILL TALK TO HIMSELF AT TIMES. PATIENT STANDS ON SIDE OF BED AND USES URINAL. RECEIVING IV LASIX AND FREQUENT URINATION. HAS NOT AMBULATED THIS SHIFT. C/O RIGHT SHOULDER PAIN. MEDICATED X2 PER NOV. PRONOUCED UMBILICAL HERNIA PRESENT. DENIES ANY PAIN, N/V. ROOMMATE NETO CALLED TO CHECK ON STATUS OF PATIENT STATING HE HAS BEEN TRYING TO GET PT INTO PSYCH FACILITY. ELEVATED BP. MEDICATED PER NOV AND SLOWLY COMING DOWN. WILL CONTINUE TO MONITOR.
--- NOTE | 2022-02-12 06:23 | NUR ---
ORACLE FUSION CONSULTANT SUMMARY ADMITTED FOR CHF EXACERBATION AND AMS. PT IS FULL CODE. HE IS PARANOID BUT ALERT. AWAITING PLACEMENT FOR PSYCH AT THE CO. PT NEEDED SEDATION PER MAR BY OTHER RN. PT IS CALM AND COOPERATIVE WITH ME BUT STILL TALKING TO SOMEONE IN THE ROOM WHO IS NOT THERE. HE GOT SHORT OF BREATH WITH AMBULATION TO THE BATHROOM AND HAS BEEN STANDING TO USE THE URINAL INSTEAD.
[2022-02-12 07:16] LABS: Bun/Creatinine Ratio 18.2 (12.0-20.0); Calcium, Blood 8.8 mg/dL (8.5-10.1); Creatinine, Blood 1.1 mg/dL (0.60-1.20); Potassium, Blood 3.8 mmol/L (3.5-5.5)
--- NOTE | 2022-02-12 12:44 | NUR ---
PATIENT BECAME VERY AGITATED AND WANTED TO LEAVE AMA. DR. WILLSON NOTIFIED AND ZYPREXA ORDERED. PATIENT REFUSED TO TAKE ZYPREXA AND BECAME AGITATED WHEN WE SPOKE ABOUT THE MEDICATION. PATIENT IS NOT ON A HOLD AND THEREFORE SIGNED AMA PAPER WORK AND LEFT. DR. WILLSON UPDATED. POWERGLIDE AND TELEMATRY REMOVED PRIOR TO D/C.
== END 2022-02-12 12:33 | disposition left against medical advice (07) | DRG 280 ==
LOC: ER 11:24 → PCU 16:48 → MEDS 02-09 16:03 → PCU 02-09 16:03 → MEDS 02-10 11:15
PROVIDERS: Internal Medicine; Student in an Organized Health Care Education/Training Program; ADMIT Internal Medicine
DX: I11.0 Hypertensive heart disease with heart failure (principal); I50.23 Acute on chronic systolic (congestive) heart failure; I21.A1 Myocardial infarction type 2; G92.8 Other toxic encephalopathy; R65.10 Systemic inflammatory response syndrome (SIRS) of non-infectious origin without acute organ dysfunction; F25.9 Schizoaffective disorder, unspecified; M54.9 Dorsalgia, unspecified; G89.29 Other chronic pain; E11.9 Type 2 diabetes mellitus without complications; F32.A Depression, unspecified; F17.210 Nicotine dependence, cigarettes, uncomplicated; F29 Unspecified psychosis not due to a substance or known physiological condition; G47.33 Obstructive sleep apnea (adult) (pediatric); E87.6 Hypokalemia; T43.625A Adverse effect of amphetamines, initial encounter; J44.9 Chronic obstructive pulmonary disease, unspecified; E66.01 Morbid (severe) obesity due to excess calories; F15.10 Other stimulant abuse, uncomplicated; Z68.32 Body mass index [BMI] 32.0-32.9, adult; Z91.19 Patient's noncompliance with other medical treatment and regimen; Z98.890 Other specified postprocedural states; Z88.5 Allergy status to narcotic agent; Z88.8 Allergy status to other drugs, medicaments and biological substances; Z79.2 Long term (current) use of antibiotics; Z79.899 Other long term (current) drug therapy
CPT/HCPCS: 36415; 51701; 71045; 71260; 80048; 80053; 81001; 82803; 83605; 83735; 83880; 84145; 84484; 85025; 87040; 93005; 93010; 94640; 94664; 94762; 96365-59; 96366-59; 96375-59; 96376-59; 99285-25; A9270; C1751; C8929; G0480; J0360; J1650; J1790; J1940; J2060; J3010; J3475; J3480; J7030; J7040; Q0177; Q9957; Q9967

== ENCOUNTER 2022-04-29 01:57 | Inpatient (IN) | payer OTHER ==
[~2022-04-29] VITALS: Ht 182.9 cm; Wt 106.5 kg
[~2022-04-29 01:57] MED LIST changes: +FURO40 PO
[2022-04-29 02:38] LABS: Base Excess Venous -4.6 mmol/L; Bicarbonate Venous 18.6 mmol/L (24.0-30.0); PCO2 Venous 67.4 mmHg (38-42)
[2022-04-29 02:39] LABS: pH Blood Venous 7.16 (7.34-7.37)
[2022-04-29 02:41] LABS: BASOPHILS ABSOLUTE AUTO 0.07 K/mm3 (0.00-0.23); BASOPHILS PERCENT AUTO 0 % (0-2); EOSINOPHILS ABSOLUTE AUTO 0.01 K/mm3 (0.00-0.68); EOSINOPHILS PERCENT AUTO 0 % (0-6); Hemoglobin 17.1 g/dL (13.5-17.5); IMMATURE GRAN ABSOLUTE AUTO 0.22 K/mm3 (0.00-0.10); IMMATURE GRAN PERCENT AUTO 1 % (0-1); LYMPHOCYTES ABSOLUTE AUTO 1.22 K/mm3 (0.84-5.20); LYMPHOCYTES PERCENT AUTO 5 % (21-46); MONOCYTES ABSOLUTE AUTO 2.14 K/mm3 (0.16-1.47); MONOCYTES PERCENT AUTO 8 % (4-13); Mean Corpuscular HGB 27.1 pg (26.0-34.0); Mean Corpuscular HGB Conc 30.3 g/dL (31.5-36.5); Mean Corpuscular Volume 90 fL (80-100); Mean Platelet Volume 10.6 fL (9.1-12.4); NEUTROPHILS ABSOLUTE AUTO 22.24 K/mm3 (1.96-9.15); NEUTROPHILS PERCENT AUTO 86 % (41-73); NRBC ABSOLUTE 0.69 K/mm3 (0.00-0.02); NRBC Auto 2.7 /100 WBC (0.0-0.2); Platelet Count 169 K/mm3 (150-400); RDW Coefficient Variation 18.4 % (11.7-14.2); Red Blood Cell Count 6.31 M/mm3 (4.30-5.90)
[2022-04-29 02:44] LABS: Hematocrit 56.5 % (37.0-53.0)
[2022-04-29 03:18] LABS: Albumin, Blood 2.4 g/dL (3.4-5.0); Albumin/Globulin Ratio 0.5 (0.8-1.8); Alk Phos 179 U/L (50-136); Anion Gap 11 mmol/L (6-16); Bilirubin, Total 2.7 mg/dL (0.1-1.0); Blood Urea Nitrogen 71 mg/dL (8-24); Bun/Creatinine Ratio 25.1 (12.0-20.0); CO2, Blood 22 mmol/L (21-32); Calcium, Blood 7.7 mg/dL (8.5-10.1); Chloride, Blood 95 mmol/L (98-108); Creatinine, Blood 2.83 mg/dL (0.60-1.20); Ethanol (Alcohol), Blood, Med <3 mg/dL; Globulin, Blood 4.4 g/dL (2.2-4.0); Glomerular Filtration Rate 26 (60-); Glucose, Blood 122 mg/dL (70-99); Sodium, Blood 128 mmol/L (136-145); Total Protein, Blood 6.8 g/dL (6.4-8.2)
[2022-04-29 03:33] LABS: Alanine Aminotransfer (ALT/SGP 1832 U/L (12-78); Aspartate Aminotrans (AST/SGOT 1627 U/L (12-37); Potassium, Blood 5.9 mmol/L (3.5-5.5)
[2022-04-29 05:37] LABS: Base Excess Venous -4.9 mmol/L; Bicarbonate Venous 18.4 mmol/L (24.0-30.0); PCO2 Venous 76.5 mmHg (38-42)
[2022-04-29 05:38] LABS: pH Blood Venous 7.11 (7.34-7.37)
[2022-04-29 05:38] LABS: Influenza A, PCR NEGATIVE (NEGATIVE); Influenza B, PCR NEGATIVE (NEGATIVE); Resp Syncytial Virus, PCR NEGATIVE (NEGATIVE); SARS-Cov-2 (COVID-19) PCR, MMC NEGATIVE (NEGATIVE)
[2022-04-29 08:19] LABS: International Normalized Ratio 2.11; Prothrombin Time Results 21.1 Sec (9.7-11.5)
[2022-04-29 09:17] LABS: PO2 Arterial 96.6 mmHg (80-100)
[2022-04-29 09:18] LABS: PCO2 Arterial 72.9 mmHg (35-45); pH Blood Arterial 7.13 (7.35-7.45)
[2022-04-29 09:31] LABS: Source, Urine Clean Catch
[2022-04-29 09:36] LABS: Blood, Urine 2+ (Neg); Color, Urine Yellow (P-Yellow); Glucose Qualitative, Urine Neg (Neg); Ketones, Urine Neg (Neg); Leukocyte Esterase, Urine 1+ (Neg); Nitrite, Urine Neg (Neg); Protein, Urine 4+ (Neg); Urobilinogen, Urine 2+ (Normal)
[2022-04-29 09:43] LABS: Appearance, Urine Hazy (Clear); Bilirubin, Urine 1+ (Neg)
[2022-04-29 09:47] LABS: U Amphetamine Screen DETECTED; U Barbituate Screen Not Detected; U Benzodiazapine Screen Not Detected; U Buprenorphine Screen Not Detected; U Cannabinoids Screen DETECTED; U Cocaine Screen Not Detected; U Methadone Screen Not Detected; U Methamphetamine Screen DETECTED; U Opiates Screen Not Detected; U Oxycodone Screen Not Detected; U Phencyclidine Screen Not Detected; U Propoxyphene Screen Not Detected
[2022-04-29 09:51] LABS: Bacteria Few /hpf; Squamous Epithelial Cells Few /hpf (Few)
--- NOTE | 2022-04-29 10:01 | NUR ---
PT ADMITTED TO ICU AT 0830. PT ARRIVED W BIPAP ON 01/05 40%. PT SOMNOLENT, AROUSES BRIEFLY TO CARE BY MOANING. PT SOILED IN DRIED STOOL AND URINE. PT CLEANED AND IV GOWN PLACED. DR ROSSI AND DR POPE AT BEDSIDE WITH MINUTES OF ADMIT. ABD SOFT WITH HYPOACTIVE TYMPANIC BT'S. PT WITH THICK DARK PURPLE SKIN TO CALVES AND FEET, EXTREMITIES COOL WITH POOR PERIPHERAL PERFUSION. BP STABLE. HR SINUS. SATS >90%. REPEAT ABG W CRITICAL RESULTS GIVEN TO DR ROSSI. 16F HIGH TEMP PROBE CATH PLACED W/O DIFFICULTY, URINE SENT TO LAB FOR UA AND TOX SCREEN. BICARB GTT AT 75CC/HR. LOVENOX HELD PER DR ROSSI. MOTTLING TO KNEES, PULSES TO PT/DP VIA DOPPLER. FAINT RADIAL PULSES.
--- NOTE | 2022-04-29 10:20 | NUR ---
PT STARTING TO WAKE UP MORE, APPEARS CONFUSED, DOES NOT FOLLOW COMMANDS, YELLS OUT"I HAVE TO PEE". DR ROSSI AT BEDSIDE. PRECEDEX GTT AVAILABLE IF NEEDED. PT HAS ST DEPRESSION. CARDIAC ENZYMES ORDERED.
--- NOTE | 2022-04-29 13:33 | NUR ---
CRITICAL TROPONIN GIVEN TO DR ROSSI EARLIER, REPEAT LAB ORDERED FRO 1800. PT CONT TO WAKE BRIEFLY, CALL OUT, THEN QUICKLY FALL BACK TO SLEEP.
--- NOTE | 2022-04-29 14:52 | NUR ---
PT AWAKE, SPEECH MOSTLY INCOMPREHENSIBLE. GARBLED. ABLE TO FOLLOW COMMANDS. OCCASSIONALLY WORDS ARE UNDERSTANDABLE "I HAVE TO PEE", "YES MA'AM". BIPAP REMOVED. O2 AT 4L VIA N/C PLACED. SATS STABLE >90%. PT HAS OCCASSIONAL SLEEP APNEA. BP IMPROVING; LESS HYPERTENSIVE, DID NOT REQUIRE LABETALOL. DR ROSSI UPDATED.
--- NOTE | 2022-04-29 16:56 | NUR ---
DR ROSSI IN TO CHECK ON PT. 1800 LABS ORDERED. POWERGLIDE PLACED W/O DIFFICULTY TO GOSIA. PT CONTINUES TO WAKE FOR SHORT PERIODS, EITHER MOANING, SINGING, OR STATING HE HAS TO PEE, BEFORE QUICKLY FALLING BACK TO SLEEP. PRECEDEX HAS NOT BEEN STARTED. PICTURES TAKEN OF BLE AND FOREHEAD SORES.
--- NOTE | 2022-04-29 17:07 | NUR ---
SUPLENA TUBE FEEDS STARTED AT 20CC/HR AT 1630. GOAL 55CC/HR. PT HAS SLEPT ENTIRE SHIFT, ONLY AWAKENS WITH CARE:MOANING. UNABLE TO TOLERATE BREAKS OFF THE BIPAP FOR LONGER THAN 2MIN. UROSTOMY BAG REMAINS INTACT AND DRAINING PURULENT URINE.
--- NOTE | 2022-04-29 17:14 | NUR ---
Pt impaired and minimally responsive. No next of kin listed [facility] directive. There is on in his chart but only scanned cover page. Unable to find any on social media. Contacted the technical mgr he is well known to them. His current address is a [employer] house . 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 Pt a little more awake this afternoon. Asked if he has family shook his head no. Will await records. Pt kps score is 30%. Looks like he has been laying on floor for sume time in urine or vomit. Prognosis very poor.
[2022-04-29 18:00] LABS: PO2 Arterial 92.3 mmHg (80-100)
[2022-04-29 18:01] LABS: PCO2 Arterial 76 mmHg (35-45); pH Blood Arterial 7.15 (7.35-7.45)
--- NOTE | 2022-04-29 18:11 | NUR ---
CRITICAL ABG RESULTS CALLED TO DR ROSSI. ORDERS TO START BIPAP AGAIN, SAME SETTINGS. MAY START PRECEDEX IF NEEDED. BIPAP PLACED, RT NOTIFIED.
--- NOTE | 2022-04-29 18:57 | NUR ---
PT WAKING UP VERY AGITATED AND TRYING TO PULL OFF BIPAP MASK, PRECEDEX GTT STARTED AT 0.2MCG.
[2022-04-29 19:07] LABS: Albumin, Blood 2.2 g/dL (3.4-5.0); Albumin/Globulin Ratio 0.6 (0.8-1.8); Bilirubin, Total 1.6 mg/dL (0.1-1.0); Bun/Creatinine Ratio 26.7 (12.0-20.0); Calcium, Blood 7.9 mg/dL (8.5-10.1); Creatinine, Blood 2.96 mg/dL (0.60-1.20); Globulin, Blood 3.6 g/dL (2.2-4.0); Potassium, Blood 5.3 mmol/L (3.5-5.5); Total Protein, Blood 5.8 g/dL (6.4-8.2)
--- NOTE | 2022-04-29 19:42 | NUR ---
Assumed care. Report received from daisha RN. Pt resting in bed ATT, on BIPAP, settings: 24/8, 35%FiO2. Precedex infusing at 0.4 mcg/kg/hr, NS tko, Bicarb infusion DC'd per Dr. Mariee. Sandhu catheter in place. VS stable ATT, will continue to monitor.
[2022-04-30 03:57] LABS: BASOPHILS ABSOLUTE AUTO 0.02 K/mm3 (0.00-0.23); BASOPHILS PERCENT AUTO 0 % (0-2); EOSINOPHILS ABSOLUTE AUTO 0.06 K/mm3 (0.00-0.68); EOSINOPHILS PERCENT AUTO 1 % (0-6); Hematocrit 43.6 % (37.0-53.0); Hemoglobin 13.5 g/dL (13.5-17.5); IMMATURE GRAN ABSOLUTE AUTO 0.05 K/mm3 (0.00-0.10); IMMATURE GRAN PERCENT AUTO 0 % (0-1); LYMPHOCYTES ABSOLUTE AUTO 0.52 K/mm3 (0.84-5.20); LYMPHOCYTES PERCENT AUTO 4 % (21-46); MONOCYTES ABSOLUTE AUTO 1.18 K/mm3 (0.16-1.47); MONOCYTES PERCENT AUTO 9 % (4-13); Mean Corpuscular HGB 26.9 pg (26.0-34.0); Mean Corpuscular Volume 87 fL (80-100); Mean Platelet Volume 11.6 fL (9.1-12.4); NEUTROPHILS ABSOLUTE AUTO 11.44 K/mm3 (1.96-9.15); NEUTROPHILS PERCENT AUTO 86 % (41-73); NRBC ABSOLUTE 0.14 K/mm3 (0.00-0.02); NRBC Auto 1.1 /100 WBC (0.0-0.2); Platelet Count 117 K/mm3 (150-400); RDW Coefficient Variation 17.5 % (11.7-14.2); RDW Standard Deviation 55.8 fL (35.1-46.3); Red Blood Cell Count 5.01 M/mm3 (4.30-5.90); White Blood Cell Count 13.27 K/mm3 (4.00-11.30)
[2022-04-30 04:10] LABS: Albumin, Blood 1.7 g/dL (3.4-5.0); Albumin/Globulin Ratio 0.6 (0.8-1.8); Bilirubin, Total 1.4 mg/dL (0.1-1.0); Bun/Creatinine Ratio 25.5 (12.0-20.0); Calcium, Blood 7.1 mg/dL (8.5-10.1); Creatinine, Blood 3.18 mg/dL (0.60-1.20); Globulin, Blood 2.9 g/dL (2.2-4.0); Potassium, Blood 5.4 mmol/L (3.5-5.5); Total Protein, Blood 4.6 g/dL (6.4-8.2)
[2022-04-30 04:44] LABS: International Normalized Ratio 1.91; Prothrombin Time Results 19.2 Sec (9.7-11.5)
[2022-04-30 06:09] LABS: HBSAG SCREEN Negative (Negative); HCV AB <0.1 (0.0-0.9); HEP A AB, IGM Negative (Negative); HEP B CORE AB, IGM Negative (Negative)
--- NOTE | 2022-04-30 06:32 | NUR ---
Shift summary. Pt rested in bed throughout shift. No changes to Bipap settings. Precedex still infusing at 0.4 mcg/kg/hr, NS TKO. 425 mls urine out this shift. VS stable throughout shift, see shift assessment for further details. Will continue to monitor and report off to dayshift RN.
--- NOTE | 2022-04-30 08:54 | NUR ---
CARE OF PT ASSUMED AT 0700. PT SLEEPING ON BIPAP /, 30%. SATS >90%. BIPAP REMOVED FOR ORAL CARE, O2 PLACED AT 4L VIA N/C. PT PLACED FLAT TO CHANGE LINEN AND CHECKED BOTTOM. SKIN INTACT. PT STARTED TO PANIC, YELLING "I NEED AIR" PT PLACED UPRIGHT, WHILE READYING BIPAP PT SAW REFLEXION IN MIRROR. HE POINTED AT MIRROR AND STARTED SCREAMING "THE ARROW OF GOD" OVER AND OVER AGAIN. PT SCREAMED "THERE IS A MAN RIGHT THERE, AND YOU CAN NOT STOP GOD!" DR DEL REAL IN UNIT, HALDOL ORDERED AND GIVEN. RESTRAINTS PLACED, BIPAP REPLACED. PT SLEEPING NOW. PRECEDEX WAS INCREASED TO 0.6MCG WILL DECREASE AGAIN TOLERATED, PT OCC HAS RUNS OF BRADYCARDIA DOWN TO 40'S. BP STABLE. DR MATHEW IN UNIT AND GIVEN FULL UPDATE. DR EDWARD ALSO GIVEN FULL UPDATE.
--- NOTE | 2022-04-30 10:59 | NUR ---
SATS DROPPED TO 80%. FIO2 INCREASED TO 100%, RT CALLED, DR MATHEW NOTIFIED. PT SUCTIONED. SATS IMPROVED. EPAP INCREASED TO [address] MATHEW. ABG ORDERED FIO2 NOW AT 55%, SATS 98-100%
[2022-04-30 11:07] LABS: PCO2 Arterial 57.6 mmHg (35-45); PO2 Arterial 136 mmHg (80-100)
[2022-04-30 11:08] LABS: pH Blood Arterial 7.26 (7.35-7.45)
--- NOTE | 2022-04-30 15:46 | NUR ---
BIPAP REMOVED FOR BREAK, PLACED ON 4L N/C, PT MUKESH BREAK WELL. PT GIVEN COMPLETE BED BATH. PT BECAME VERY AGITATED DURING BATH, PT PANICKED, YELLING OUT/WORD SALAD. PT THEN CALMED DOWN. PT VERY CONFUSED, RESTRAINTS REMAIN. OKAY FOR PT TO BE OFF BIPAP LONG HE TOLERATES PER PRIYANKA.
--- NOTE | 2022-04-30 15:50 | NUR ---
PT'S MOM AT BEDSIDE, DR MATHEW AND JANES WITH PALLIATIVE CARE SPOKE W PT'S MOM. PT NOW DNR STATUS, PURPLE DNR BAND TO RIGHT WRIST.
--- NOTE | 2022-04-30 17:36 | NUR ---
FIRER BISQUE KILN AT BEDSIDE. "LARGE CLOT TO RIGHT ATRIUM" PRELIM. DR MATHEW NOTIFIED, AT BEDSIDE. HEPARIN GTT TO BE STARTED PER PHARMACY.
--- NOTE | 2022-04-30 18:19 | NUR ---
pt mother at bedside. therputic conversation with her. PT mother is known to this science writer as have helped her with end of life on her other son. She is expressing grief as she has been anticipating a call for years about him being in the hospital. She made him a DNR and understands his poor prognosis.
--- NOTE | 2022-04-30 19:41 | NUR ---
Assumed care. Report received from daisha BRIGGS. Pt in bed, on 02 via NC at 4 L/min. Pt sleeping but arousable, oriented to self only. Precedex infusing at 0.1 mcg/kg/hr, NS at 60 ml/hr. Heparin gtt started per pharmacy, rate 18 units/kg/hr, with 7000 unit IVP bolus. Sandhu catheter in place, draining to gravity. SWB restraints in place. VS stable, no acute needs ATT, will continue to monitor.
[2022-05-01 04:21] LABS: BASOPHILS ABSOLUTE AUTO 0.03 K/mm3 (0.00-0.23); BASOPHILS PERCENT AUTO 0 % (0-2); EOSINOPHILS ABSOLUTE AUTO 0.12 K/mm3 (0.00-0.68); EOSINOPHILS PERCENT AUTO 1 % (0-6); Hematocrit 45.8 % (37.0-53.0); Hemoglobin 13.8 g/dL (13.5-17.5); IMMATURE GRAN ABSOLUTE AUTO 0.11 K/mm3 (0.00-0.10); IMMATURE GRAN PERCENT AUTO 1 % (0-1); LYMPHOCYTES ABSOLUTE AUTO 0.73 K/mm3 (0.84-5.20); LYMPHOCYTES PERCENT AUTO 5 % (21-46); MONOCYTES ABSOLUTE AUTO 1.52 K/mm3 (0.16-1.47); MONOCYTES PERCENT AUTO 10 % (4-13); Mean Corpuscular HGB 26.9 pg (26.0-34.0); Mean Corpuscular HGB Conc 30.1 g/dL (31.5-36.5); Mean Corpuscular Volume 89 fL (80-100); Mean Platelet Volume 11.2 fL (9.1-12.4); NEUTROPHILS ABSOLUTE AUTO 12.63 K/mm3 (1.96-9.15); NEUTROPHILS PERCENT AUTO 84 % (41-73); NRBC ABSOLUTE 0.07 K/mm3 (0.00-0.02); NRBC Auto 0.5 /100 WBC (0.0-0.2); Platelet Count 102 K/mm3 (150-400); RDW Coefficient Variation 18.2 % (11.7-14.2); RDW Standard Deviation 58.4 fL (35.1-46.3); Red Blood Cell Count 5.13 M/mm3 (4.30-5.90); White Blood Cell Count 15.14 K/mm3 (4.00-11.30)
[2022-05-01 04:32] LABS: Albumin/Globulin Ratio 0.6 (0.8-1.8); Bilirubin, Indirect 0.4 mg/dL (0.1-0.7); Bilirubin, Total 1.4 mg/dL (0.1-1.0); Bun/Creatinine Ratio 29.7 (12.0-20.0); Calcium, Blood 7.3 mg/dL (8.5-10.1); Creatinine, Blood 2.73 mg/dL (0.60-1.20); Globulin, Blood 3.5 g/dL (2.2-4.0); Phosphorus, Blood 6.9 mg/dL (2.5-4.9); Potassium, Blood 5.1 mmol/L (3.5-5.5); Total Protein, Blood 5.5 g/dL (6.4-8.2); Vancomycin, Trough 22.3 ug/mL (5.0-10.0)
[2022-05-01 04:33] LABS: International Normalized Ratio 1.52; Prothrombin Time Results 15.5 Sec (9.7-11.5)
--- NOTE | 2022-05-01 06:16 | NUR ---
Shift summary. Pt rested in bed throughout shift. No acute changes, heparin infusing at 18 unit/kg/hr, NS 60 ml/hr. 1500 mls urine out this shift. VS stable throughout shift. Pt seems slightly more alert and aware of his surroundings this shift. See shift assessment for further details. Will continue to monitor and report off to dayshift RN.
--- NOTE | 2022-05-01 08:24 | NUR ---
ASSUMED CARE REPORT FROM TERI BRIGGS AT 0700. PT RESTING IN BED. OPENS EYES TO VERBAL STIMULI. DOES NOT MAKE EYE CONTACT. DOES NOT ANSWER QUESTIONS APPROPRIATELY. INCOHERANT MOANS. RETURNS TO SLEEP WHEN UNDISTURBED. LUNGS CLEAR, 2L VIA NC. SR ON MONITOR, RATE 60'S. BP STABLE. ABD ROUND, SOFT, HERNIA PRESENT. BT X 4. HIGH PATENT, DRAINING CLEAR YELLOW URINE TO GRAVITY. SKIN c MULTIPLE ABRASIONS AND WOUNDS. SEE SKIN ASSESSMENT. DISCOLORATION TO BLE, 2+ EDEMA, WOUNDS, PPP. HEPARIN GTT INFUSING AT 18 UNITS/KG/HR, PRECEDEX AT 0.1 MCG/KG/HR. WILL CONTINUE TO MONITOR.
--- NOTE | 2022-05-01 18:03 | NUR ---
SHIFT SUMMARY PT STATUS CHANGED TO MED s TELE. PRECEDEX D/C'D. PT A&OX 2. RELUCTANT TO ANSWER QUESTIONS AND DIFFCULT TO UNDERSTAND. ABLE TO FOLLOW SIMPLE COMMANDS. DOES NOT APPEAR TO BE HALLUCINATING AT THIS TIME. CONTINUES TO HAVE SLURRED, GARBLED SPEECH. VSS. TOLERATING DIET WELL. HIGH PATENT, DRAINED 1000 ML CLEAR YELLOW URINE TO GRAVITY. SKIN IN POOR CONDITION, SEE SHIFT ASSESSMENT. WILL CONTINUE TO MONITOR UNTIL REPORT TO ONCOMING NURSE.
[2022-05-01 21:06] LABS: Vancomycin, Random 16.3 ug/mL
[2022-05-02 03:31] LABS: BASOPHILS ABSOLUTE AUTO 0.03 K/mm3 (0.00-0.23); BASOPHILS PERCENT AUTO 0 % (0-2); EOSINOPHILS ABSOLUTE AUTO 0.12 K/mm3 (0.00-0.68); EOSINOPHILS PERCENT AUTO 1 % (0-6); Hematocrit 44.7 % (37.0-53.0); Hemoglobin 13.6 g/dL (13.5-17.5); IMMATURE GRAN ABSOLUTE AUTO 0.09 K/mm3 (0.00-0.10); IMMATURE GRAN PERCENT AUTO 1 % (0-1); LYMPHOCYTES ABSOLUTE AUTO 0.46 K/mm3 (0.84-5.20); LYMPHOCYTES PERCENT AUTO 4 % (21-46); MONOCYTES PERCENT AUTO 12 % (4-13); Mean Corpuscular HGB Conc 30.4 g/dL (31.5-36.5); Mean Corpuscular Volume 89 fL (80-100); NEUTROPHILS PERCENT AUTO 83 % (41-73); NRBC ABSOLUTE 0.05 K/mm3 (0.00-0.02); NRBC Auto 0.4 /100 WBC (0.0-0.2); Platelet Count 87 K/mm3 (150-400); RDW Coefficient Variation 18.5 % (11.7-14.2); RDW Standard Deviation 58.4 fL (35.1-46.3); Red Blood Cell Count 5.03 M/mm3 (4.30-5.90)
[2022-05-02 03:45] LABS: Albumin, Blood 2.1 g/dL (3.4-5.0); Anion Gap 7 mmol/L (6-16); Blood Urea Nitrogen 75 mg/dL (8-24); Bun/Creatinine Ratio 33.9 (12.0-20.0); CO2, Blood 27 mmol/L (21-32); Calcium, Blood 7.5 mg/dL (8.5-10.1); Chloride, Blood 105 mmol/L (98-108); Creatinine, Blood 2.21 mg/dL (0.60-1.20); Glomerular Filtration Rate 35 (60-); Glucose, Blood 138 mg/dL (70-99); International Normalized Ratio 1.34; Prothrombin Time Results 13.8 Sec (9.7-11.5); Sodium, Blood 139 mmol/L (136-145)
--- NOTE | 2022-05-02 06:28 | NUR ---
PT INTERMITTENTLY RESTED OVERNIGHT. PT YELLING, TOSSING/TURNING. PRN ADMINISTERED FOR AGITATION - SOMEWHAT EFFECTIVE. DENIES CHEST PAIN OR DISCOMFORT. PT ON RA PULLS OFF NC. INCONTINENT OF BOWEL AND BLADDER. HIGH DC. TURNS SELF FREQUENTLY IN BED.
--- NOTE | 2022-05-02 08:28 | NUR ---
ASSUMED CARE REPORT FROM RENEE BRIGGS AT 0700. PT RESTING IN BED. WAKES c VERBAL STIMULI. A&OX 2. FOLLOWS SIMPLE COMMANDS. GARBLED SPEECH, DIFFICULT TO UNDERSTAND. RETURNS TO SLEEP WHEN UNDISTURBED. LUNGS CLEAR. COUGH NOTED. 2L VIA NC. TOLERATING MEALS WELL. ABD ROUND, SOFT, NON TENDER. HERNIA PRESENT. INCONTINENT OF URINE. SKIN IN POOR CONDITION. SEE SKIN ASSESSMENT. WILL CONTINUE TO MONITOR.
--- NOTE | 2022-05-02 15:16 | NUR ---
Attempted interaction with patient.To much delirium. He tried to react when I told him he needs to live somewhere else. Will see if he clears. From what his friends told me he has been declining for some time. Him PVD disease and cardiac disease couple with untreated psyciatric disease make him a canidate for hospice. With his drug use and poor circultion he may be developing dementia. Will discuss with physician kps score is 30 to 40%.
--- NOTE | 2022-05-02 17:33 | NUR ---
SHIFT SUMMARY PT SLEPT MOST OF SHIFT. WILL WAKE c VERBAL STIMULI. DIFFICULT TO UNDERSTAND SPEECH. FOLLOWS SIMPLE COMMANDS. HTN, MEDICATED c LABETALOL, HR DECREASED TO 50'S. EKG DONE. ORDER CHANGED TO HYDRALAZINE FOR FUTURE HTN. MEDICATED c HALDOL ONCE. PT INCONTINENT OF URINE AND STOOL. MOTHER UPDATED. WILL CONTINUE TO MONITOR UNTIL REPORT TO ONCOMING NURSE.
[2022-05-03 03:49] LABS: BASOPHILS ABSOLUTE AUTO 0.03 K/mm3 (0.00-0.23); BASOPHILS PERCENT AUTO 0 % (0-2); EOSINOPHILS ABSOLUTE AUTO 0.26 K/mm3 (0.00-0.68); EOSINOPHILS PERCENT AUTO 2 % (0-6); Hematocrit 46.1 % (37.0-53.0); Hemoglobin 13.5 g/dL (13.5-17.5); IMMATURE GRAN ABSOLUTE AUTO 0.06 K/mm3 (0.00-0.10); IMMATURE GRAN PERCENT AUTO 1 % (0-1); LYMPHOCYTES ABSOLUTE AUTO 0.53 K/mm3 (0.84-5.20); LYMPHOCYTES PERCENT AUTO 5 % (21-46); MONOCYTES ABSOLUTE AUTO 1.66 K/mm3 (0.16-1.47); MONOCYTES PERCENT AUTO 14 % (4-13); Mean Corpuscular HGB 26.5 pg (26.0-34.0); Mean Corpuscular HGB Conc 29.3 g/dL (31.5-36.5); Mean Corpuscular Volume 91 fL (80-100); Mean Platelet Volume 10.3 fL (9.1-12.4); NEUTROPHILS ABSOLUTE AUTO 9.16 K/mm3 (1.96-9.15); NEUTROPHILS PERCENT AUTO 78 % (41-73); NRBC ABSOLUTE 0.04 K/mm3 (0.00-0.02); NRBC Auto 0.3 /100 WBC (0.0-0.2); Platelet Count 88 K/mm3 (150-400); RDW Coefficient Variation 18.7 % (11.7-14.2); RDW Standard Deviation 60.1 fL (35.1-46.3); Red Blood Cell Count 5.09 M/mm3 (4.30-5.90)
[2022-05-03 04:11] LABS: International Normalized Ratio 1.31; Prothrombin Time Results 13.5 Sec (9.7-11.5)
[2022-05-03 04:18] LABS: Albumin, Blood 2.2 g/dL (3.4-5.0); Anion Gap 4 mmol/L (6-16); Blood Urea Nitrogen 61 mg/dL (8-24); Bun/Creatinine Ratio 37.7 (12.0-20.0); CO2, Blood 30 mmol/L (21-32); Calcium, Blood 7.9 mg/dL (8.5-10.1); Chloride, Blood 107 mmol/L (98-108); Creatinine, Blood 1.62 mg/dL (0.60-1.20); Glomerular Filtration Rate 51 (60-); Glucose, Blood 124 mg/dL (70-99); Phosphorus, Blood 3.5 mg/dL (2.5-4.9); Potassium, Blood 4.2 mmol/L (3.5-5.5); Sodium, Blood 141 mmol/L (136-145)
--- NOTE | 2022-05-03 06:07 | NUR ---
UNEVENTFUL NIGHT. PRN FOR AGITAION - SOMEWHAT EFFECTIVE. SR PRN ANTIHYPERTENSIVE GIVEN - EFFECTIVE. ON 2L NC SAT <92% ABD - SOFT ROUND W/UMBILICAL HERNIA. INCONTINENT OF BOWEL AND BLADDER. BONY PROMINENCES OFFLOADED AND PROTECTED.
--- NOTE | 2022-05-03 08:28 | NUR ---
Spoke to hospitalist team, notifed Dr Rivero that pt's HR is 140, regular, narrow QRS. Discussed that pt had bradycardia following IV administration of labetalol yesterday. Also discussed that pt's PO metoprolol had been decreased from 25 to 12.5 mg, although as it's scheduled daily, he has not yet gotten today's dose. Per provider, plan to continue with metoprolol as ordered and monitor response.
--- NOTE | 2022-05-03 08:40 | NUR ---
Dr Emma Ribeiro in to see patient. Discussed pt's mentation. Pt is reponsive to pressure. But does not maintain open eyes for more than a few seconds. Plan to hold PO meds this AM and provide 5 mg metoprolol IV.
--- NOTE | 2022-05-03 12:48 | NUR ---
Pt changed to comfort care by pt's mother, after discussion with palliative RN Paulette. Pt became more restless and tachypneic. Medicated with ativan and morphine. Report given to medical floor RN by Kia BRIGGS, who is caring for pt alongside this RN. Pt transferred to room [id number] accompanied by Cristiana LUGO and Kia BRIGGS. Chart, medications, belongings transferred with patient.
--- NOTE | 2022-05-03 15:45 | NUR ---
physician review feel prognosis is poor hospice is best choice. pt not able to participate in decision. mother is his poa. Pt mother and this short story writer have had conversations about prognosis she understand that end of life coming. She is ok with ok with decision. She is getting more frail herslf and sick. Yenifer Dixon RN witnessed conversation. Very tough one for mother I have assited her with her other son. Therputic time with mother and praised her. Advised physician and placed on comfort care updated care manger and will update [facility].
--- NOTE | 2022-05-03 18:12 | NUR ---
PT UP FROM ICU. PT WITH ORDERS FOR COMFORT CARE. UNABLE TO ASSESS ORIENTATION, LETHARGIC/OBTUNDED. PRN MEDICATIONS ADMINISTERED FOR COMFORT. PT INCONTINENT, IN BRIEFS, CHANGED MULTIPLE TIMES. WILL CONTINUE TO MONITOR.
--- NOTE | 2022-05-03 21:02 | NUR ---
CALLED PTS MOTHER EARLIER PER HER REQUEST RE UPDATE ON PT STATUS. SHE VOICED PT HAD HX OF TAKING DRUGS LIKE HIS OLDER BROTHER, WHO HAD A FEW YEARS AGO. SHE SAID THAT WHEN THAT HAPPENED, PT WHO ALREADY HAD A DRUG ABUSE HX SEEMED TO GO [place] AND GOT DEEPER INTO DRUGS AND HIS HEALTH WENT DOWN FROM THERE. PT ON COMFORT CARE PER MD ORDERS. CALL LIGHT IN REACH. HOB ELEVATED. RESPS SHALLOW AND RAPID. CALL LIGHT IN REACH.
--- NOTE | 2022-05-04 00:56 | NUR ---
RESPS TRENDING DOWNWARD. NOTE SLOW KUSHMAL BREATHING AT THIS TIME. SKIN COOL TO TOUCH. WARM BLANKET APPLIED. NOT RESPONSIVE TO VERBAL OR TACTILE STIMULUS. CHARGE NURSE NOTIFIED.
--- NOTE | 2022-05-04 01:13 | NUR ---
NO BREATH SOUNDS PER AUSCULTATION PER 2 RNS. NO PULSE OF CAROTID OR BILAT READIAL PER 2 RNS. EYES FIXED AND DO NOT RESPOND. SKIN COLD TO TOUCH. CALL PLACED TO MD RESOURCE TEACHER. CALL TO BE PLACED TO MOTHER AFTER SPEAKING TO MD, PER HER REQUEST EARLIER. CHARGE NURSE AWARE OF ABOVE INFO.
--- NOTE | 2022-05-04 01:40 | NUR ---
(DR MOSER) NOTIFIED BY CHARGE NURSE. CALL PLACED TO MOTHER. MOTHER VOICED OF CHOICE WAS "[facility]". CHARGE NURSE NOTIFIED. CHARGE NURSE TO F/U WITH CORRESPONDENCE WITH MORTUARY.
--- NOTE | 2022-05-04 04:18 | NUR ---
POST MORTEM CARE WAS COMPLETED. [facility] DC'[facility]. MORTUARY WAS NOTIFIED AND WILL SEND STAFF TO TRANSPORT PT.
--- NOTE | 2022-05-04 04:43 | NUR ---
AT 0430 "GARO MERCADO" ARRIVED TO TAKE PT TO MORTUARY. EYES REMAIN COVERED WITH ICE PACKS FOR POTENTIAL DONOR USE. CHARGE NURSES NOTIFIED.
== END 2022-05-04 01:00 | DRG 871 ==
LOC: ER 01:57 → ICUW 06:41 → ICUE 06:41 → MEDS 05-03 12:47
PROVIDERS: Emergency Medicine; Family Medicine; Internal Medicine Critical Care Medicine; ADMIT Internal Medicine
DX: A41.9 Sepsis, unspecified organism (principal); G92.8 Other toxic encephalopathy; J18.9 Pneumonia, unspecified organism; J96.01 Acute respiratory failure with hypoxia; J96.02 Acute respiratory failure with hypercapnia; J69.0 Pneumonitis due to inhalation of food and vomit; I50.22 Chronic systolic (congestive) heart failure; E87.2 Acidosis; N17.9 Acute kidney failure, unspecified; K56.609 Unspecified intestinal obstruction, unspecified as to partial versus complete obstruction; J90 Pleural effusion, not elsewhere classified; I13.0 Hypertensive heart and chronic kidney disease with heart failure and stage 1 through stage 4 chronic kidney disease, or unspecified chronic kidney disease; J44.0 Chronic obstructive pulmonary disease with (acute) lower respiratory infection; I42.7 Cardiomyopathy due to drug and external agent; Z51.5 Encounter for palliative care; Z66 Do not resuscitate; T43.625A Adverse effect of amphetamines, initial encounter; Z20.822 Contact with and (suspected) exposure to COVID-19; I51.3 Intracardiac thrombosis, not elsewhere classified; F25.9 Schizoaffective disorder, unspecified; R65.20 Severe sepsis without septic shock; I71.2 Thoracic aortic aneurysm, without rupture; F15.10 Other stimulant abuse, uncomplicated; F32.A Depression, unspecified; G89.29 Other chronic pain; N18.1 Chronic kidney disease, stage 1; E11.22 Type 2 diabetes mellitus with diabetic chronic kidney disease; M54.9 Dorsalgia, unspecified; E66.9 Obesity, unspecified; G47.33 Obstructive sleep apnea (adult) (pediatric); Z98.890 Other specified postprocedural states; Z88.5 Allergy status to narcotic agent; Z88.8 Allergy status to other drugs, medicaments and biological substances; Z79.899 Other long term (current) drug therapy
CPT/HCPCS: 0241U; 36415; 36600; 51702; 70450; 71045; 74174; 76705; 80053; 80069; 80074; 80202; 81001; 82140; 82248; 82550; 82570; 82803; 82947; 83605; 83690; 83880; 84100; 84132; 84156; 84484; 85025; 85520; 85610; 85730; 86140; 87040; 87086; 93005; 93010; 94644; 94660; 94664; 96365; 96367; 96375; 99285-25; A9270; C1751; C8929; G0480; J0360; J0610; J0692; J1630; J1644; J2060; J2310; J2405; J2543; J3010; J3370; J7030; J7050; Q9957; Q9967